=== PATIENT | female | born 1965 ===

== ENCOUNTER 2017-08-19 14:05 | Inpatient (IN) | payer BC ==
[2017-08-19 15:04] LABS: BASO # 0.04 K/mm3 (0.0-2.0); BASO % 0.3 % (0.0-3.0); EOS # 0.2 (0.0-0.7); EOS % 1.9 % (1.5-5.0); GRAN # 6.99 (1.4-6.5); GRAN % 59.3 % (50.0-68.0); HEMOGLOBIN 15.2 g/dL (12.0-16.0); LYMPH # 3.9 (1.2-3.4); LYMPH % 32.7 % (22.0-35.0); MEAN CELL VOLUME 84.9 fl (80.0-105.0); MEAN CORPUSCULAR HEMOGLOBIN 30.2 pg (25.0-35.0); MEAN CORPUSCULAR HGB CONC 35.6 g/dl (31.0-37.0); MEAN PLATELET VOLUME 9.1 fl (7.0-11.0); MONO # 0.7 (0.1-0.6); MONO % 5.8 % (1.0-6.0); RBC 5.03 10^6/uL (3.5-6.1); WHITE BLOOD COUNT 11.8 10^3/ul (4.5-11.0)
--- NOTE | 2017-08-19 15:04 | ED PDOC ---
Arrival/HPI - General Chief Complaint: Psychiatric Evaluation Time Seen by Provider: 08/19/17 14:57 Historian: Patient - History of Present Illness Narrative History of Present Illness (Text): 08/19/17 15:00 pt p/w + weeks onset of severe depression, worsening over the last 1-2 weeks; pt states lately some voices are stating/tell her to harm herself; pt states the voices and imagery are getting stronger; pt state she is seeing numerous ants and even to the point where she is trying to hit the ants; pt also noted concern for shadowy images; pt states + severe suicidal thoughts, pt wanted to jump in front of a train today but didnt; pt states no homicidal ideations, ? tactile hallucinations; pt states no fever/chills/sweats, no cp/sob/palpitations , no abd pain, no n/v, no numbness/tingling, no urinary/bowel changes, no rashes ; pt denied other complaints; pt is here for further eval. pt also states she has not been compliant with her mediations pt stopped drinking alcohol for weeks Time/Duration: < month Symptom Onset: Gradual Symptom Course: Worsening Context: Home Past Medical History - Provider Review Nursing Documentation Reviewed: Yes - Travel History Have you recently traveled outside [place] w/in the past 3 mons?: No - Past History Past History: No Previous - Infectious Disease Hx of Infectious Diseases: None - Reproductive Menopause: Yes - Cardiac Hx Cardiac Disorders: No Hx VT: No - Pulmonary Hx Respiratory Disorders: No Hx Tuberculosis: No (Patient denied) - Neurological Hx Neurological Disorder: No HX Cerebrovascular Accident: No Hx Transient Ischemic Attacks (TIA): No Other/Comment: ADHD - HEENT Hx HEENT Disorder: No - Renal Hx Renal Disorder: No - Endocrine/Metabolic Hx Endocrine Disorders: No - Hematological/Oncological Hx Blood Disorders: No Hx Blood Transfusions: No Hx Blood Transfusion Reaction: No - Integumentary Hx Dermatological Disorder: No - Musculoskeletal/Rheumatological Hx Musculoskeletal Disorders: No Hx Back Pain: No Hx Falls: No Hx Fractures: No - Gastrointestinal Hx Gastrointestinal Disorders: No - Genitourinary/Gynecological Hx Genitourinary Disorders: No Hx Sexually Transmitted Diseases: No (Patient denied) - Psychiatric Hx Psychophysiologic Disorder: Yes Hx Anxiety: Yes Hx Bipolar Disorder: Yes Hx Depression: Yes Hx Emotional Abuse: No Hx Physical Abuse: No Hx Substance Use: Yes Other/Comment: ADHD - Surgical History Hx Section: Yes (X1) Other/Comment: "TUMMY TUCK" AND "BREAST LIFT" - Anesthesia Hx Anesthesia: Yes Hx Anesthesia Reactions: No Hx Malignant Hyperthermia: No - Suicidal Assessment Suicide Risk Precautions: Suicide Precautions Family/Social History - Physician Review Nursing Documentation Reviewed: Yes Family/Social History: No Known Family HX Smoking Status: Heavy Smoker > 10 Cigarettes Daily Hx Alcohol Use: Yes Frequency of alcohol use: Socially Hx Substance Use: Yes Substance used: marijuanna and cocaine Hx Substance Use Treatment: No Allergies/Home Meds Allergies/Adverse Reactions: Allergies Penicillins Adverse Reaction (Verified 08/19/17 14:47) RASH Home Medications: Home Meds Medication Instructions Recorded Confirmed B-Complex with Vitamin C [Super B 1 tab PO DAILY 11/22/16 08/19/17 Complex-Vitamin C] Disulfiram 500 mg PO DAILY 11/22/16 08/19/17 QUEtiapine [Seroquel XR] 50 mg PO DAILY 11/22/16 08/19/17 ALPRAZolam [Xanax] 1 mg PO BID 08/19/17 08/19/17 Dextromethorphan HBr/Quinidine 1 cap PO BID 08/19/17 08/19/17 [Nuedexta 20-10 mg Capsule] Lamotrigine [Lamictal] 200 mg PO DAILY 08/19/17 08/19/17 Lisdexamfetamine Dimesylate 30 mg PO DAILY 08/19/17 08/19/17 [Vyvanse] Vortioxetine Hydrobromide 20 mg PO DAILY 08/19/17 08/19/17 [Trintellix] buPROPion XL [Wellbutrin XL] 150 mg PO DAILY 08/19/17 08/19/17 Review of Systems - Review of Systems Constitutional: Fatigue Eyes: Normal ENT: Normal Respiratory: Normal Cardiovascular: Normal Gastrointestinal: Normal Genitourinary Female: Normal Musculoskeletal: Normal Skin: Normal Neurological: Normal Endocrine: Normal Hemo/Lymphatic: Normal Psychiatric: Anxiety, Depression, Suicidal Ideation Physical Exam Vital Signs Reviewed: Yes Vital Signs Temp Pulse Resp BP Pulse Ox 08/19/17 18:21 82 18 137/86 98 08/19/17 16:21 74 18 129/84 98 08/19/17 14:08 98.2 F 100 H 19 135/89 98 Temperature: Afebrile Blood Pressure: Normal Pulse: Regular Respiratory Rate: Normal Appearance: Positive for: Well-Appearing, Other (uncomfortable, crying at bedside, alert/awake, GCS = 15, oriented x 3, cooperative, follows command with ease) Pain Distress: Mild Mental Status: Positive for: Alert and Oriented X 3, other (flat affect) - Systems Exam Head: Present: Atraumatic, Normocephalic Pupils: Present: PERRL, Other (no nystagmus, no photophobia, sclera anicteric, visual field intact b/l) Extroacular Muscles: Present: EOMI Conjunctiva: Present: Normal Ears: Present: Normal Mouth: Present: Moist Mucous Membranes, Normal Teeth Pharnyx: Present: Normal Nose (External): Present: Atraumatic Nose (Internal): Present: Normal Inspection Neck: Present: Normal Range of Motion, Trachea Midline, Other (intact ROM, no midline tenderness, no meningeal signs). No: MIDLINE TENDERNESS Respiratory/Chest: Present: Clear to Auscultation, Good Air Exchange, Other ( CTA b/l, no w/r/r, no accessory muscle use noted, no tachypenia) Cardiovascular: Present: Regular Rate and Rhythm, Normal S1, S2. No: Murmurs Abdomen: Present: Normal Bowel Sounds, Other (well nourished female, no focal tenderness, no mendez's sign, no mcburney's point tenderness) Back: Present: Normal Inspection. No: Midline Tenderness Upper Extremity: Present: Normal Inspection, Normal ROM, NORMAL PULSES, Neurovascularly Intact, Capillary Refill < 2s Lower Extremity: Present: Normal Inspection, NORMAL PULSES, Normal ROM, Neurovascularly Intact, Capillary Refill < 2 s, Other (+ ambulatory) Neurological: Present: GCS=15, CN II-XII Intact, Speech Normal, Other (NIH stroke scale ~ 0; no facial asymmetries, no slurr speech) Skin: Present: Warm, Normal Color, Other (cap refill < 1sec, no ulcerations, no petechiae) Psychiatric: Present: Alert, Oriented x 3, Depressed Mood, Suicidal Ideation, Other (flat affect; + crying at bedside) Medical Decision Making ED Course and Treatment: 08/19/17 15:08 Impression: suicidal ideation/attempt; severe depression/hallucination i have consider all the differential diagnosis regarding pt's chief medical complaints/clinical findings, including but are not limited to: suicidal ideation/attempt; severe depression A/P: severe depression, suicidal thoughts/attempt - labs - iv - xray - ekg - observe - supportive care 08/19/17 15:09 PT is MEDICALLY CLEARED FOR PSYCH EVAL 08/19/17 18:00 PES evaluated patient at bedside, will present to psych; does recommend for admission, awaiting for patient to sign in voluntarily 19:50 PES re-evaluated patient, pt is now agreeable for psych admission; will come in voluntarily pt is made aware of her medical results agrees with admission Re-evaluation Time: 19:50 Reassessment Condition: Unchanged - Lab Interpretations Lab Results: 08/19/17 14:15 08/19/17 14:15 Lab Results 08/19/17 15:25: Urine Color Yellow, Urine Appearance Turbid, Urine pH 6.0, Ur Specific [place] >= 1.030, Urine Protein 30 H, Urine Glucose (UA) Negative, Urine Ketones Trace H, Urine Blood Negative, Urine Nitrate Negative, Urine Bilirubin Negative, Urine Urobilinogen 0.2, Ur Leukocyte Esterase Negative, Urine RBC Negative, Urine WBC 1 - 3, Ur Epithelial Cells Many, Urine Bacteria Many, Urine HCG, Qual Negative 08/19/17 15:25: Urine Opiates Screen Negative, Urine Methadone Screen Negative, Ur Barbiturates Screen Negative, Ur Phencyclidine Scrn Negative, Ur Amphetamines Screen Negative, U Benzodiazepines Scrn Positive, U Oth Cocaine Metabols Negative, U Cannabinoids Screen Positive H 08/19/17 14:15: Alcohol, Quantitative < 10 08/19/17 14:15: Salicylates < 1 L, Acetaminophen < 10.0 L 08/19/17 14:15: Sodium 141, Potassium 3.8, Chloride 103, Carbon Dioxide 25, Anion Gap 16, BUN 8, Creatinine 0.7, Est GFR ( Amer) > 60, Est GFR (Non- Af Amer) > 60, Random Glucose 139 H, Calcium 10.2, Total Bilirubin 0.5, AST 34, ALT 37, Alkaline Phosphatase 148 H, Total Protein 7.9, Albumin 4.5, Globulin 3.4 , Albumin/Globulin Ratio 1.3 08/19/17 14:15: WBC 11.8 H, RBC 5.03, Hgb 15.2, Hct 42.7, MCV 84.9, MCH 30.2, MCHC 35.6, RDW 13.0, Plt Count 421, MPV 9.1, Gran % 59.3, Lymph % (Auto) 32.7, [place] % (Auto) 5.8, Eos % (Auto) 1.9, Baso % (Auto) 0.3, Gran # 6.99 H, Lymph # ( Auto) 3.9 H, [place] # (Auto) 0.7 H, Eos # (Auto) 0.2, Baso # (Auto) 0.04 I have reviewed the lab results: Yes Interpretation: Abnormal lab values (+ weed in [place]) - RAD Interpretation Narrative RAD Interpretations (Text): Report Date : 08/19/2017 16:47:08 PROCEDURE: Chest xray Dictator : Shane Shelley MD FINDINGS: LUNGS:No active pulmonary disease. PLEURA:No significant pleural effusion identified, no pneumothorax apparent. CARDIOVASCULAR:Normal. OSSEOUS STRUCTURES:No significant abnormalities. VISUALIZED UPPER ABDOMEN:Normal. OTHER FINDINGS:None. IMPRESSION: No active disease. Radiology Orders: 08/19/17 14:58 CHEST PORTABLE [RAD] Stat Clip On Sunglasses Inspector: Radiologist - EKG Interpretation EKG Interpretation (Text): 08/19/17 15:10 NSR at 90 bpm, normal axis, no ectopy, voltage criteria LVH, non-specific st-t changes, ABNL EKG; no old ekg to compare with Interpreted by ED Physician: Yes Type: 12 lead EKG Comparison: No previous EKG avail. - Medication Orders Current Medication Orders: Discontinued Medications Ziprasidone (Geodon Inj) 10 mg IM STAT STA PRN Reason: Protocol Stop: 08/19/17 17:53 Last Admin: 08/19/17 18:22 Dose: 10 mg IM Administration Charges Document 08/19/17 18:22 SF (Rec: 08/19/17 18:22 SF [id number]) Injection Site MAR Injection Site Left Deltoid Charges for Administration # of IM Administrations 1 Disposition/Present on Arrival - Present on Arrival Any Indicators Present on Arrival: No History of DVT/PE: No History of Uncontrolled Diabetes: No Urinary Catheter: No History of Decub. Ulcer: No History Surgical Site Infection Following: None - Disposition Have Diagnosis and Disposition been Completed?: Yes Diagnosis: Severe major depression, Depression with suicidal ideation, Hallucination Disposition: HOSPITALIZED Disposition Time: 19:52 Patient Plan: Admission (Behavioral health) Patient Problems: Current Active Problems Problem Status Onset Severe major depression Acute Condition: STABLE Referrals: Shane Carrion [Primary Care Provider] - Follow up with primary Forms: theAudience ([place])
[2017-08-19 15:15] LABS: ALB/GLOB RATIO 1.3 (1.1-1.8); ALBUMIN 4.5 g/dL (3.0-4.8); ALT/SGPT 37 U/L (7-56); AST/SGOT 34 U/L (14-36); BLOOD UREA NITROGEN 8 mg/dL (7-21); CALCIUM 10.2 mg/dL (8.4-10.5); GFR AFRICAN-AMERICAN > 60; GFR NON-AFRICAN AMERICAN > 60; SALICYLATE < 1 mg/dL (2.0-20.0)
[2017-08-19 15:16] LABS: ACETAMINOPHEN < 10.0 ug/ml (10.0-20.0)
[2017-08-19 15:52] LABS: URINE BILIRUBIN NEGATIVE (NEGATIVE); URINE BLOOD NEGATIVE (NEGATIVE); URINE GLUCOSE (UA) NEGATIVE (NEGATIVE); URINE LEUKOCYTE ESTERASE NEGATIVE Leu/uL (NEGATIVE); URINE NITRATE NEGATIVE (NEGATIVE); URINE PROTEIN 30 mg/dL (<30 mg/dL); URINE UROBILINOGEN 0.2 E.U./dL (<1 E.U./dL)
[2017-08-19 15:53] LABS: URINE APPEARANCE TURBID (CLEAR); URINE COLOR YELLOW (YELLOW)
[2017-08-19 15:55] LABS: PHENCYCLIDINE, UR NEGATIVE (NEGATIVE)
[2017-08-19 16:05] LABS: BARBITURATES, UR NEGATIVE (NEGATIVE); BENZODIAZEPINES, UR POSITIVE (NEGATIVE); OPIATES, UR NEGATIVE (NEGATIVE)
[2017-08-19 16:07] LABS: URINE BACTERIA MANY (NEG); URINE EPITHELIAL CELLS MANY /hpf (0-5); URINE RBC NEGATIVE /hpf (0-2)
[2017-08-19 16:09] LABS: HCG,QUALITATIVE URINE NEGATIVE (NEGATIVE)
--- NOTE | 2017-08-19 16:48 | RAD ---
HISTORY: medical screening for psych COMPARISON: No prior. FINDINGS: LUNGS: No active pulmonary disease. PLEURA: No significant pleural effusion identified, no pneumothorax apparent. CARDIOVASCULAR: Normal. OSSEOUS STRUCTURES: No significant abnormalities. VISUALIZED UPPER ABDOMEN: Normal. OTHER FINDINGS: None. IMPRESSION: No active disease.
[2017-08-19] MEDS: QUEtiapine 50 mg XR Tab PO SCH (21:35)
[2017-08-19] MEDS ORDERED: Alum-Mag Hydrox-Simethicone Susp (30 mL) PO PRN (22:21)
[2017-08-20 00:54] VITALS: O2SAT 100
--- NOTE | 2017-08-20 02:30 | CARD ---
APPROVED REPORT EKG Measurement Heart [id number] <Conclusion> Normal sinus rhythm Possible Left atrial enlargement Borderline ECG
[2017-08-20] MEDS ORDERED: buPROPion 150 mg/24 Hours XL Tab PO SCH (08:00)
[2017-08-20 08:03] LABS: GLUCOSE,FASTING 158 mg/dL (65-110); HDL CHOLESTEROL 43 mg/dL (29-60)
[2017-08-20 08:14] LABS: LDL CHOLESTEROL 152 mg/dL (0-129)
[2017-08-20] MEDS: QUEtiapine 50 mg XR Tab PO SCH (09:28)
[2017-08-20] MEDS: Insulin Reg-MEDIUM-Coverage SC SCH ×3 (14:10→22:11)
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
[2017-08-20] MEDS ORDERED: Albuterol HFA 90 mcg/actuation (8 g) IH PRN (15:47)
--- NOTE | 2017-08-20 16:52 | CON ---
DATE: HISTORY OF PRESENT ILLNESS: I was called to Psychiatric Unit for medical evaluation. She is a 52-year-old female who comes in with severe depression, worsening over the last 1 to 2 weeks. Also, some voices telling her to harm herself. Also, visual hallucinations of ants, shadow images. Severe suicidal thoughts, like wanting to jump in front of a train. No homicidal thoughts. No fever. She states she is taking the medications. She stopped drinking alcohol for weeks. She used to be a big drinker. PAST MEDICAL HISTORY: ADHD, depression, bipolar, anxiety, substance abuse. She had a tummy tuck, section, breast lift surgeries. FAMILY HISTORY: Unknown. SOCIAL HISTORY: She still smokes, still drinks, still smokes marijuana and cocaine. ALLERGIES: TO PENICILLIN. MEDICINES: She takes vitamin Zofran, Seroquel, Xanax, dextromethorphan, Lamictal, Vyvanse, Trintellix, Wellbutrin. REVIEW OF SYSTEMS: Very tired and fatigued. No vision or hearing changes. No sore throat. No chest pain or palpitations. No shortness of breath or cough. No abdominal pain, nausea, vomiting, constipation, diarrhea. No problems urinating. No back pain or leg pains. No weakness or tingling. No numbness. She is very depressed, very anxious, suicidal thoughts. PHYSICAL EXAMINATION GENERAL: She is alert, well-appearing, very sad, slow to respond, but alert and oriented x3. Flat affect. VITAL SIGNS: She has 98.2 temperature, 100 pulse, 19 respiratory rate, 135/89 blood pressure, 98% O2 sat. We will watch her blood pressure. HEENT: Head atraumatic, normocephalic. Extraocular muscles are intact. Pupils equal and reactive to light. Throat is moist. NECK: Supple. HEART: Regular rate, normal S1, S2. LUNGS: Decreased breath sounds, poor inspiration, clear to auscultation. Very tired, not willing to talk much. ABDOMEN: Soft, nontender, positive bowel sounds. EXTREMITIES: Have no edema. NEUROLOGIC: GCS is 15. Cranial nerves II to XII grossly intact. SKIN: Warm and dry. No apparent ulcers that I could appreciate or skin irritation. She has got suicidal ideation, depression, visual and auditory hallucinations, marijuana and cocaine abuse, urinary tract infection, high cholesterol, leukocytosis. She had multiple labs. She has 11.8 white count, high; 15.2 hemoglobin; 42.7 hematocrit with 421 platelets. Sodium 141, potassium 3.8, BUN 8, creatinine 0.7, GFR is greater than 60, sugar is 139. Blood sugars are high, I will put her on coverage. Calcium is 10.2, total bilirubin is 0.5, AST is 34, ALT is 37, alkaline phosphatase 148, total protein 7.9, albumin is 4.5, globulin is 3.4, triglycerides 129, and cholesterol is 209, little bit high. Urine is positive for many bacteria, I will put her on antibiotics; negative for ; positive for marijuana. The chest x-ray was okay. The EKG was okay. Multiple problems from suicidal ideations, depression, visual and auditory hallucinations, marijuana use, possible elevated blood sugars or diabetes, urinary tract infection, high cholesterol, leukocytosis, attention deficit hyperactive disorder. We will check her labs tomorrow. Put her on antibiotics. will follow. Thank you very much. Junior Rider DO [facility]
[2017-08-20] MEDS: Fluticasone-Salmeterol 500-50mcg Diskus INH SCH (17:58)
[2017-08-20] MEDS ORDERED: guaiFENesin 200 mg/10 ml Syrup UD PO PRN (20:51)
[2017-08-20] MEDS: Benzocaine/Menthol (Cepacol) Lozenge MT PRN (21:39)
[2017-08-20] MEDS: Magnesium Hydroxide Susp 30 ml UD PO PRN (22:18)
--- NOTE | 2017-08-21 00:52 | PCM.BM ---
Treatment Plan Problems - Problems identified on initial assessmt Ineffective Coping Date Initiated: 08/19/17 Time Initiated: 22:00 Assessment reference: NA Status: Active Priority: 6 Medication Nonadherence Date Initiated: 08/19/17 Time Initiated: 22:00 Assessment reference: NA Status: Active Priority: 7 Suicidal Ideation Date Initiated: 08/19/17 Time Initiated: 22:00 Assessment reference: NA Status: Active Priority: 1 Command/Auditory Hallucinations Date Initiated: 08/19/17 Time Initiated: 22:00 Assessment reference: NA Status: Active Priority: 2 Feelings of Worthlessness Date Initiated: 08/19/17 Time Initiated: 22:00 Assessment reference: NA Status: Active Priority: 3 Hopelessness/Helplessness Date Initiated: 08/19/17 Time Initiated: 22:00 Assessment reference: NA Status: Active Priority: 4 Anxiety Date Initiated: 08/19/17 Time Initiated: 22:00 Assessment reference: NA Status: Active Priority: 5 Treatment assets and liabiliti Patient Assests: cooperative, ADL independent, negotiates basic needs Patient Liabilities: relationship conflicts - Milieu Protocol Maintain good personal hygiene: daily Encourage regular showers, every shift Remind patient to perform daily oral care, every shift Assist patient to perform ADL's Maintain personal safety: every shift Educate patient to report safety concerns to staff, every shift Monitor environment for contraband/sharps Medication safety: Monitor for expected outcome, potential side effects: every shift, Assess barriers to learning: every shift, Assess readiness for medication education: every shift Milieu Narrative: milieu/structure/supportive therapy Disulfiram 500 mg PO DAILYpt might consider that, but refused for now pt was educated about naltrexone QUEtiapine [Seroquel XR] 50 mg PO DAILY will be d/c ALPRAZolam [Xanax] 1 mg PO will be increased to tid for anxiety Dextromethorphan HBr/Quinidine [Nuedexta 20-10 mg Capsule] d/c Lamotrigine [Lamictal] 200 mg PO DAILY will be not resumed, pt was off it for 7days Lisdexamfetamine Dimesylate [Vyvanse] 30 mg PO DAILY d/c, pt was hallucinating Vortioxetine Hydrobromide [Trintellix] 20 mg PO DAILY d/c buPROPion XL [Wellbutrin XL] 150 mg PO DAILY d/c prozac started 20mg po daily for depression and anxiety abilify 5mg po daily for mood stabilization sonata 5mg po hs for insomnia will call medical consult SW evaluation Family involvement Follow up on labs Will monitor closely Pt was educated about risk/benefits and alternatives of medications, coping strategies (safety plan, suicide prevention), relapse prevention, importance of follow up with psychiatrist and therapist, stay away from drugs/alcohol/smoking Family Contact Family involvement: Family/SO is involved Family contact: Patient agrees to contact Discharge/Continuing Care - Education Needs Education Needs: Patient Medication, Patient Diagnosis/Disease Process, Patient Coping Skills, Patient Anger Management skills, Patient Placement options, Patient Community resources, Patient Activities of Daily Living, Patient Pain, Patient Nutrition, Patient Uses of Medical Equipment, Patient Health Practices/ Safety, Patient Personal Hygiene/Grooming, Patient Aftercare Safety Plan, Patient Other - Discharge Discharge Criteria: Tolerates medication w/o severe side effects, Free of Suicidal thoughts - Treatment Team Participation Patient/Family/SO Statement: milieu/structure/supportive therapy Disulfiram 500 mg PO DAILYpt might consider that, but refused for now pt was educated about naltrexone QUEtiapine [Seroquel XR] 50 mg PO DAILY will be d/c ALPRAZolam [Xanax] 1 mg PO will be increased to tid for anxiety Dextromethorphan HBr/Quinidine [Nuedexta 20-10 mg Capsule] d/c Lamotrigine [Lamictal] 200 mg PO DAILY will be not resumed, pt was off it for 7days Lisdexamfetamine Dimesylate [Vyvanse] 30 mg PO DAILY d/c, pt was hallucinating Vortioxetine Hydrobromide [Trintellix] 20 mg PO DAILY d/c buPROPion XL [Wellbutrin XL] 150 mg PO DAILY d/c prozac started 20mg po daily for depression and anxiety abilify 5mg po daily for mood stabilization sonata 5mg po hs for insomnia will call medical consult SW evaluation Family involvement Follow up on labs Will monitor closely Pt was educated about risk/benefits and alternatives of medications, coping strategies (safety plan, suicide prevention), relapse prevention, importance of follow up with psychiatrist and therapist, stay away from drugs/alcohol/smoking
--- NOTE | 2017-08-21 01:53 | CON ---
DATE: 08/20/2017 PULMONARY CONSULTATION REFERRING PHYSICIAN: Patsy Sexton MD. REASON FOR CONSULT: Shortness of breath, bronchitis. HISTORY OF PRESENT ILLNESS: This is a 52-year-old female with past medical history significant for bronchitis, active smoker, severe depression, came into emergency room with a suicidal ideation. She expressed feeling jumping in front of the train. No homicidal ideation. Also having cough, shortness of breath. No nausea. No vomiting. No diarrhea, leg pain or leg swelling. PAST MEDICAL HISTORY: ADHD, major depression, chronic bronchitis, also claims has a bipolar disorder, history of substance abuse. FAMILY HISTORY: No significant cardiopulmonary disease reported. SOCIAL HISTORY: She is active smoker. Does use alcohol. Also has a history of substance abuse. In the past, used marijuana and cocaine. ALLERGY: TO PENICILLIN, DEVELOP RASH. MEDICATIONS: At present, she is on Abilify 5 mg daily, Cepacol lozenges q. 2 hours p.r.n. Geodon 20 mg q. 8 hours p.r.n. and Geodon 20 mg IM q. 8 hours p.r.n. insulin coverage, Maalox p.r.n., Macrobid 100 mg twice a day, milk of magnesia p.r.n., Nicoderm patch daily, Prozac 10 mg daily, Sonata 5 mg at bedtime p.r.n., Tylenol p.r.n., Xanax 1 mg q. 8 hours p.r.n. REVIEW OF SYSTEMS: Not much headache. No rhinitis. Has a cough, sputum production, short of breath. No chest pain. No nausea. No vomiting, diarrhea, leg pain, leg swelling. PHYSICAL EXAMINATION: GENERAL: Lying in the bed, no acute distress. VITAL SIGNS: Temp is 98, heart rate is 75, respiratory rate is 20, blood pressure 113/70, pulse ox 100% on room air. HEENT: Moist mucous membranes. Small oral cavity. Crowded airway. NECK: Supple. No JVD. LUNGS: Have a prolonged expiratory phase with some rhonchi. HEART: S1 and S2. ABDOMEN: Soft, nontender. No organomegaly. EXTREMITIES: There is no edema. NEUROLOGIC: Awake, alert. Follows simple command. LABORATORY DATA: Shows hemoglobin 15.2, hematocrit 42.7, WBC 11.8, platelet is 421. Sodium 141, potassium 3.8, chloride 103, bicarbonate 25, BUN 8, creatinine 0.7, glucose 236, calcium is 10.2, AST 34, ALT 37, alk phos is 148, albumin is 4.5, cholesterol is 209, TSH 1.28. Drug screen positive for cannabinoid. Had a chest x-ray done in the emergency room, shows no infiltrate or effusion. Had EKG done in the ER, shows normal sinus rhythm. IMPRESSION AND PLAN: Major depression with probably bipolar disorder, chronic obstructive lung disease with acute bronchitis, being followed by psychiatrist. Pulmonary point of view, may give her Nicoderm patch. We will start her on Breo 1 puff daily, Ventolin HFA q. 4 hours p.r.n., gastric prophylaxis, fall precaution. Urged the patient to stop smoking. Pulmonary function test upon discharge as outpatient. Thank you and we will follow with you. Jennifer Powers MD
[2017-08-21] MEDS: Fluticasone-Salmeterol 500-50mcg Diskus INH SCH ×2 (06:33→21:42)
[2017-08-21 08:09] LABS: HEMOGLOBIN 14.3 g/dL (12.0-16.0); MEAN CELL VOLUME 86.9 fl (80.0-105.0); MEAN CORPUSCULAR HEMOGLOBIN 29.7 pg (25.0-35.0); MEAN CORPUSCULAR HGB CONC 34.2 g/dl (31.0-37.0); MEAN PLATELET VOLUME 9.1 fl (7.0-11.0); RBC 4.81 10^6/uL (3.5-6.1); RED CELL DISTRIBUTION WIDTH 12.9 % (11.5-14.5); WHITE BLOOD COUNT 9.9 10^3/ul (4.5-11.0)
[2017-08-21] MEDS: Insulin Reg-MEDIUM-Coverage SC SCH ×3 (08:31→17:07)
[2017-08-21 08:39] LABS: ALB/GLOB RATIO 1.3 (1.1-1.8); ALT/SGPT 45 U/L (7-56); AST/SGOT 31 U/L (14-36); BLOOD UREA NITROGEN 10 mg/dL (7-21); CALCIUM 9.7 mg/dL (8.4-10.5); GFR AFRICAN-AMERICAN > 60; GFR NON-AFRICAN AMERICAN > 60
--- NOTE | 2017-08-21 15:45 | PN ---
DATE: SUBJECTIVE: I saw her resting comfortably in bed. She is in better spirits. She is eating a little bit better. She is taking her medications. She is on Abilify, Advair, Cepacol, Geodon, insulin, Maalox, Macrobid, milk of magnesia, NicoDerm, Pepcid, Sonata, Tylenol, Ventolin and Xanax. She has depression, suicidal ideation, diabetes, marijuana and cocaine abuse history, visual and auditory hallucinations, positive UTI, high cholesterol, leukocytosis and ADHD. OBJECTIVE VITAL SIGNS: Temperature 98.2, pulse 75, blood pressure 135/85, respiratory rate 20. HEENT: Head is atraumatic, normocephalic. HEART: Regular rate. LUNGS: Clear to auscultation. ABDOMEN: Soft and obese. EXTREMITIES: No edema. DATA: She has a 9.9 white count and better, 14.3 hemoglobin, 41.8 hematocrit with 347,000 platelets. Sodium 141, potassium 4.3, BUN 10, creatinine 0.7. GFR is greater than 60. Sugar is 215, calcium 9.7, total bilirubin is 0.4, AST is 31, ALT is 45, alkaline phosphatase 118, total protein 7.1. IMPRESSION AND PLAN: She does have urinary tract infection, positive for marijuana. RPR is nonreactive. She is being seen by Psychiatry and Pulmonary for shortness of breath. She has chronic obstructive pulmonary disease. She is on NicoDerm patch. Encourage the patient to stop smoking. We will continue with aggressive treatment and care. Junior Rider DO [facility]
--- NOTE | 2017-08-21 18:35 | PCM.BM ---
- Diagnosis (1) Bipolar II disorder Status: Acute Interventions: 08/20/17 15:03 Psychoeducation Psychopharmacology/adjustment of medications as needed/ monitoring possible side effects Monitor blood level of mood stabilizers Evaluate pt on daily basis Compliance with medications and follow up appointments Suicide and homicide risk assessment and prevention, coping strategies, safety plan Relapse prevention Reduction of symptoms Improve functional status Family involvement As outpatient: cognitive behavioral therapy (2) Polysubstance abuse Status: Acute Interventions: 08/20/17 15:03 Monitoring withdrawal symptoms Medical detoxification Pharmacotherapy for alcohol/benzos/opioid dependence Maintaining sobriety Relapse prevention Possible rehabilitation Motivational interviewing 12-step programs: AA meetings (3) PTSD (post-traumatic stress disorder) Status: Acute Interventions: 08/20/17 15:04 Psychoeducation Psychopharmacology/adjustment of medications as needed/ monitoring possible side effects Evaluate pt on daily basis Discussion of importance of being compliant with medications and follow up appointments Suicide and homicide risk assessment and prevention, coping strategies, safety plan Reduction of symptoms Relaxation techniques and breathing exercises Improve functional status Family involvement Cognitive behavioral therapy as outpatient - Milieu Protocol Milieu Narrative: milieu/structure/supportive therapy Disulfiram 500 mg PO DAILYpt might consider that, but refused for now pt was educated about naltrexone QUEtiapine [Seroquel XR] 50 mg PO DAILY will be d/c ALPRAZolam [Xanax] 1 mg PO will be increased to tid for anxiety Dextromethorphan HBr/Quinidine [Nuedexta 20-10 mg Capsule] d/c Lamotrigine [Lamictal] 200 mg PO DAILY will be not resumed, pt was off it for 7days Lisdexamfetamine Dimesylate [Vyvanse] 30 mg PO DAILY d/c, pt was hallucinating Vortioxetine Hydrobromide [Trintellix] 20 mg PO DAILY d/c buPROPion XL [Wellbutrin XL] 150 mg PO DAILY d/c prozac started 20mg po daily for depression and anxiety abilify 5mg po daily for mood stabilization sonata 5mg po hs for insomnia will call medical consult SW evaluation Family involvement Follow up on labs Will monitor closely Pt was educated about risk/benefits and alternatives of medications, coping strategies (safety plan, suicide prevention), relapse prevention, importance of follow up with psychiatrist and therapist, stay away from drugs/alcohol/smoking Discharge/Continuing Care - Treatment Team Participation Patient/Family/SO Statement: milieu/structure/supportive therapy Disulfiram 500 mg PO DAILYpt might consider that, but refused for now pt was educated about naltrexone QUEtiapine [Seroquel XR] 50 mg PO DAILY will be d/c ALPRAZolam [Xanax] 1 mg PO will be increased to tid for anxiety Dextromethorphan HBr/Quinidine [Nuedexta 20-10 mg Capsule] d/c Lamotrigine [Lamictal] 200 mg PO DAILY will be not resumed, pt was off it for 7days Lisdexamfetamine Dimesylate [Vyvanse] 30 mg PO DAILY d/c, pt was hallucinating Vortioxetine Hydrobromide [Trintellix] 20 mg PO DAILY d/c buPROPion XL [Wellbutrin XL] 150 mg PO DAILY d/c prozac started 20mg po daily for depression and anxiety abilify 5mg po daily for mood stabilization sonata 5mg po hs for insomnia will call medical consult SW evaluation Family involvement Follow up on labs Will monitor closely Pt was educated about risk/benefits and alternatives of medications, coping strategies (safety plan, suicide prevention), relapse prevention, importance of follow up with psychiatrist and therapist, stay away from drugs/alcohol/smoking
--- NOTE | 2017-08-21 18:41 | PCM.PYCHPN ---
Psychiatric Progress Note - Psychiatric Progress Note Patient seen today, length of contact: 30min Patient Chief Complaint: "I am hopeless and anxious, I want to go home" Problems Identified/Issues Discussed: Suicide/ homicide prevention, past psychiatric h/o, current psychiatric symptoms , medical problems, risk/benefits and alternatives of medications, medications compliance, coping strategies, substance abuse h/o, relapse prevention, importance of follow up with psychiatrist and therapist, discharge plan. Medical Problems: See HPI Diagnostic Results: 08/21/17 07:30 08/21/17 07:30 Lab Results 08/21/17 16:35: POC Glucose (mg/dL) 167 H 08/21/17 11:01: POC Glucose (mg/dL) 264 H 08/21/17 07:30: Sodium 141, Potassium 4.3, Chloride 102, Carbon Dioxide 26, Anion Gap 16, BUN 10, Creatinine 0.7, Est GFR ( Amer) > 60, Est GFR (Non- Af Amer) > 60, Random Glucose 215 H, Calcium 9.7, Total Bilirubin 0.4, AST 31, ALT 45, Alkaline Phosphatase 118, Total Protein 7.1, Albumin 4.0, Globulin 3.2, Albumin/Globulin Ratio 1.3 08/21/17 07:30: WBC 9.9, RBC 4.81, Hgb 14.3, Hct 41.8, MCV 86.9, MCH 29.7, MCHC 34.2, RDW 12.9, Plt Count 347, MPV 9.1 08/21/17 07:15: POC Glucose (mg/dL) 161 H 08/20/17 21:14: POC Glucose (mg/dL) 198 H 08/20/17 17:12: POC Glucose (mg/dL) 125 H 08/20/17 11:14: POC Glucose (mg/dL) 236 H 08/20/17 07:20: RPR Nonreactive 08/20/17 07:20: TSH 3rd Generation 1.28 08/20/17 07:20: Fasting Glucose 158 H, Triglycerides 129, Cholesterol 209 H, LDL Cholesterol Direct 152 H, HDL Cholesterol 43 08/19/17 15:25: Urine Color Yellow, Urine Appearance Turbid, Urine pH 6.0, Ur Specific [place] >= 1.030, Urine Protein 30 H, Urine Glucose (UA) Negative, Urine Ketones Trace H, Urine Blood Negative, Urine Nitrate Negative, Urine Bilirubin Negative, Urine Urobilinogen 0.2, Ur Leukocyte Esterase Negative, Urine RBC Negative, Urine WBC 1 - 3, Ur Epithelial Cells Many, Urine Bacteria Many, Urine HCG, Qual Negative 08/19/17 15:25: Urine Opiates Screen Negative, Urine Methadone Screen Negative, Ur Barbiturates Screen Negative, Ur Phencyclidine Scrn Negative, Ur Amphetamines Screen Negative, U Benzodiazepines Scrn Positive, U Oth Cocaine Metabols Negative, U Cannabinoids Screen Positive H 08/19/17 14:15: Alcohol, Quantitative < 10 08/19/17 14:15: Salicylates < 1 L, Acetaminophen < 10.0 L 08/19/17 14:15: Sodium 141, Potassium 3.8, Chloride 103, Carbon Dioxide 25, Anion Gap 16, BUN 8, Creatinine 0.7, Est GFR ( Amer) > 60, Est GFR (Non- Af Amer) > 60, Random Glucose 139 H, Calcium 10.2, Total Bilirubin 0.5, AST 34, ALT 37, Alkaline Phosphatase 148 H, Total Protein 7.9, Albumin 4.5, Globulin 3.4 , Albumin/Globulin Ratio 1.3 08/19/17 14:15: WBC 11.8 H, RBC 5.03, Hgb 15.2, Hct 42.7, MCV 84.9, MCH 30.2, MCHC 35.6, RDW 13.0, Plt Count 421, MPV 9.1, Gran % 59.3, Lymph % (Auto) 32.7, [place] % (Auto) 5.8, Eos % (Auto) 1.9, Baso % (Auto) 0.3, Gran # 6.99 H, Lymph # ( Auto) 3.9 H, [place] # (Auto) 0.7 H, Eos # (Auto) 0.2, Baso # (Auto) 0.04 Vital Signs Temp Pulse Resp BP Pulse Ox 08/21/17 16:00 88 139/95 H 08/21/17 06:44 98.2 F 75 20 137/85 08/20/17 15:44 80 127/64 08/20/17 07:13 98.1 F 75 113/70 08/19/17 21:00 98.4 F 70 20 133/84 08/19/17 20:45 89 18 131/85 100 08/19/17 18:21 82 18 137/86 98 08/19/17 16:21 74 18 129/84 98 08/19/17 14:08 98.2 F 100 H 19 135/89 98 DSM 5 Symptoms Update: Shortly pt is 52yo single, female, long h/o alcohol addiction, cocaine and cannabis abuse, one self reported psychiatric admission, currently under the service of private psychiatrist , self reported h/o 4x suicidal attempts, 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 pt submitted 48 hr notice, requesting discharge this newspaper writer had prolonged conversation with pt with SW pt presented to be tearful and anxious pt appears to be depressed pt said she was not able to sleep pt asked lamictal to be resumed pt c/o extreme anxiety, klonopin added mood "depressed and hopeless". pt rescinded 48hr notice. med teaching provided. DSM 5 Diagnosis: r/o bipolar II depressed with psychosis r/o substance induced psychosis (withdrawals) r/o delirium, pt has UTI polysubstance abuse most likely it is all the above, combined Medication Change: Yes Medical Record Reviewed: Yes Consults ordered or reviewed: medical consult appreciated Mental Status Examination - Cognitive Function Orientation: Person, Place, Situation, Time Memory: Intact Attention: Poor Concentration: Poor Association: Loose Fund of Knowledge: Poor - Mood Mood: Depressed, Anxious - Affect Affect: Flat - Formal Thought Process Formal Thought Process: No Impairment (denied) - Suicidal Ideation Suicidal Ideation: No - Homicidal Ideation Homicidal Ideation: No Goal/Treatment Plan - Goal/Treatment Plan Need for Continued Stay: Remain at risks for inpatient hospitalization, Severe depression anxiety, Discharge may exacerbated symptoms, Severe functional impairment Progress Toward Problem(s) and Goals/Treatment Plan: milieu/structure/supportive therapy Disulfiram 500 mg PO DAILYpt might consider that, but refused for now pt was educated about naltrexone ALPRAZolam [Xanax] 1 mg PO tid for anxiety PRN klonopin 2mg po bid scheduled Dextromethorphan HBr/Quinidine [Nuedexta 20-10 mg Capsule] d/c Lamotrigine will be resumed 100mg po bid for mood stabilization as per pt's request prozac started 20mg po daily for depression and anxiety abilify 5mg po bid for mood stabilization sonata 10mg po hs for insomnia will call medical consult SW evaluation Family involvement Follow up on labs Will monitor closely Pt was educated about risk/benefits and alternatives of medications, coping strategies (safety plan, suicide prevention), relapse prevention, importance of follow up with psychiatrist and therapist, stay away from drugs/alcohol/smoking Estimated Date of D/C: 08/25/17
[2017-08-21] MEDS: Benzocaine/Menthol (Cepacol) Lozenge MT PRN (21:41)
[2017-08-21] MEDS: Magnesium Hydroxide Susp 30 ml UD PO PRN (22:47)
[2017-08-22] MEDS: Insulin Reg-MEDIUM-Coverage SC SCH ×5 (00:10→23:30)
--- NOTE | 2017-08-22 02:40 | PN ---
DATE: 08/21/2017 REFERRING PHYSICIAN: Patsy Sexton MD SUBJECTIVE: Patient is sitting up, having dinner. Night was unremarkable. Slept well. Feels better. Decreased cough. Decreased shortness of breath. No nausea. No vomiting. No diarrhea. No leg pain or leg swelling. OBJECTIVE: GENERAL: In no acute distress. VITAL SIGNS: Temperature is 98, heart rate is 88, respiratory rate is 20, blood pressure 139/95. HEENT: Moist mucous membrane. Small oral cavity. NECK: Supple. No JVD. LUNGS: Has better airflow today. No wheezing. HEART: S1 and S2. ABDOMEN: Soft, nontender. No organomegaly. EXTREMITIES: There is no edema. NEUROLOGICAL: Awake, alert, follow simple command. MEDICATIONS: She is on Abilify 5 mg twice a day, Advair 500/50 one puff twice a day, Cepacol lozenges q. 2 hours p.r.n. Geodon 20 mg q. 8 hours p.o.., also Geodon 20 mg IM q. 8 hours p.r.n., Klonopin 2 mg twice a day, Lamictal 100 mg twice a day, Maalox p.r.n. basis, Macrobid 100 mg twice a day, Nicoderm patch daily, Pepcid 40 mg at bedtime, Prozac 20 mg daily, Sonata 10 mg at bedtime, Tylenol p.r.n., Ventolin HFA two puff q. 4 hours p.r.n., Xanax 1 mg three times a day p.r.n. LABORATORY DATA: Shows hemoglobin 14.3, hematocrit 41.8, WBC 9.9, platelet is 347. Sodium 141, potassium 4.3, chloride 108, bicarbonate 26, BUN 10, creatinine 0.7, glucose 215, calcium is 9.7, AST is 31, ALT is 45, alkaline phosphatase is 118, albumin is 4.0. IMPRESSION AND PLAN: Major depression probably bipolar, chronic obstructive lung disease with acute bronchitis, admitted with suicidal ideation. Pulmonary point of view, doing okay. Continue p.o. and inhaled bronchodilator. Gastric prophylaxis. Fall precaution. We will recommend full pulmonary function test upon discharge as an outpatient. Continue therapy. Thank you and we will follow with you. Jennifer Powers MD [facility] # [phone]
[2017-08-22] MEDS: Promethazine DM 6.25 mg-15 mg/5 ml Syrup PO PRN ×2 (09:22→21:21)
--- NOTE | 2017-08-22 14:31 | PN ---
DATE: SUBJECTIVE: I saw her sitting up in bed. She is now coughing with some yellow-green mucus, feeling sick she tells me; otherwise, mentally she is feeling a bit better. MEDICATIONS: She is on Abilify, Advair, Cepacol lozenges, Geodon, insulin, Klonopin, Lamictal, Maalox, Macrobid for UTI, milk of magnesia, Nicoderm, Pepcid, Phenergan DM, Prozac, Sonata, Tylenol, Ventolin, Xanax. I added promethazine, I added Zithromax. OBJECTIVE: VITAL SIGNS: She has a 97.9 temperature, 88 pulse, 144/87 blood pressure, 20 respiratory rate. HEAD: Atraumatic, normocephalic. HEART: Regular rate. LUNGS: Clear to auscultation with mild congestion, clears with cough. ABDOMEN: Soft. EXTREMITIES: No edema. LABORATORY DATA: White count 9.9, 14.3 hemoglobin and 347 platelets. Last blood sugar was 143. BUN 10, creatinine 0.7, calcium 9.7. AST is 31, ALT is 45. Urine was positive. PLAN: I am going to discontinue her Macrobid. She is on Zithromax. I asked her to drink more fluids. I do think mentally she is getting better. She is here for numerous reasons, suicidal ideation, depression, marijuana, cocaine history, visual and auditory hallucinations, diabetes, UTI, high cholesterol, leukocytosis, ADHD and now URI. Junior Rider DO
--- NOTE | 2017-08-22 15:24 | PCM.PYCHPN ---
Psychiatric Progress Note - Psychiatric Progress Note Patient seen today, length of contact: 30min Patient Chief Complaint: "I slept little bit better" Problems Identified/Issues Discussed: Suicide/ homicide prevention, past psychiatric h/o, current psychiatric symptoms , medical problems, risk/benefits and alternatives of medications, medications compliance, coping strategies, substance abuse h/o, relapse prevention, importance of follow up with psychiatrist and therapist, discharge plan. Medical Problems: See HPI Diagnostic Results: 08/21/17 07:30 08/21/17 07:30 Lab Results 08/21/17 16:35: POC Glucose (mg/dL) 167 H 08/21/17 11:01: POC Glucose (mg/dL) 264 H 08/21/17 07:30: Sodium 141, Potassium 4.3, Chloride 102, Carbon Dioxide 26, Anion Gap 16, BUN 10, Creatinine 0.7, Est GFR ( Amer) > 60, Est GFR (Non- Af Amer) > 60, Random Glucose 215 H, Calcium 9.7, Total Bilirubin 0.4, AST 31, ALT 45, Alkaline Phosphatase 118, Total Protein 7.1, Albumin 4.0, Globulin 3.2, Albumin/Globulin Ratio 1.3 08/21/17 07:30: WBC 9.9, RBC 4.81, Hgb 14.3, Hct 41.8, MCV 86.9, MCH 29.7, MCHC 34.2, RDW 12.9, Plt Count 347, MPV 9.1 08/21/17 07:15: POC Glucose (mg/dL) 161 H 08/20/17 21:14: POC Glucose (mg/dL) 198 H 08/20/17 17:12: POC Glucose (mg/dL) 125 H 08/20/17 11:14: POC Glucose (mg/dL) 236 H 08/20/17 07:20: RPR Nonreactive 08/20/17 07:20: TSH 3rd Generation 1.28 08/20/17 07:20: Fasting Glucose 158 H, Triglycerides 129, Cholesterol 209 H, LDL Cholesterol Direct 152 H, HDL Cholesterol 43 08/19/17 15:25: Urine Color Yellow, Urine Appearance Turbid, Urine pH 6.0, Ur Specific Lennon >= 1.030, Urine Protein 30 H, Urine Glucose (UA) Negative, Urine Ketones Trace H, Urine Blood Negative, Urine Nitrate Negative, Urine Bilirubin Negative, Urine Urobilinogen 0.2, Ur Leukocyte Esterase Negative, Urine RBC Negative, Urine WBC 1 - 3, Ur Epithelial Cells Many, Urine Bacteria Many, Urine HCG, Qual Negative 08/19/17 15:25: Urine Opiates Screen Negative, Urine Methadone Screen Negative, Ur Barbiturates Screen Negative, Ur Phencyclidine Scrn Negative, Ur Amphetamines Screen Negative, U Benzodiazepines Scrn Positive, U Oth Cocaine Metabols Negative, U Cannabinoids Screen Positive H 08/19/17 14:15: Alcohol, Quantitative < 10 08/19/17 14:15: Salicylates < 1 L, Acetaminophen < 10.0 L 08/19/17 14:15: Sodium 141, Potassium 3.8, Chloride 103, Carbon Dioxide 25, Anion Gap 16, BUN 8, Creatinine 0.7, Est GFR ( Amer) > 60, Est GFR (Non- Af Amer) > 60, Random Glucose 139 H, Calcium 10.2, Total Bilirubin 0.5, AST 34, ALT 37, Alkaline Phosphatase 148 H, Total Protein 7.9, Albumin 4.5, Globulin 3.4 , Albumin/Globulin Ratio 1.3 08/19/17 14:15: WBC 11.8 H, RBC 5.03, Hgb 15.2, Hct 42.7, MCV 84.9, MCH 30.2, MCHC 35.6, RDW 13.0, Plt Count 421, MPV 9.1, Gran % 59.3, Lymph % (Auto) 32.7, [place] % (Auto) 5.8, Eos % (Auto) 1.9, Baso % (Auto) 0.3, Gran # 6.99 H, Lymph # ( Auto) 3.9 H, [place] # (Auto) 0.7 H, Eos # (Auto) 0.2, Baso # (Auto) 0.04 Vital Signs Temp Pulse Resp BP Pulse Ox 08/21/17 16:00 88 139/95 H 08/21/17 06:44 98.2 F 75 20 137/85 08/20/17 15:44 80 127/64 08/20/17 07:13 98.1 F 75 113/70 08/19/17 21:00 98.4 F 70 20 133/84 08/19/17 20:45 89 18 131/85 100 08/19/17 18:21 82 18 137/86 98 08/19/17 16:21 74 18 129/84 98 08/19/17 14:08 98.2 F 100 H 19 135/89 98 DSM 5 Symptoms Update: Shortly pt is 52yo single, female, long h/o alcohol addiction, cocaine and cannabis abuse, one self reported psychiatric admission, currently under the service of private psychiatrist , self reported h/o 4x suicidal attempts, 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 patient was seen at the treatment team meeting pt presented to be tearful and anxious pt appears to be depressed, but affect was poor reactive today patient presented better organized to compare with the time of admission, but still has pressured speech, thought process circumstantial and tangential, difficult to stay focus and concentrate. med teaching provided. patient tolerated medications well, no side effects observed or reported, aims 0 , EPSNone DSM 5 Diagnosis: r/o bipolar II depressed with psychosis r/o substance induced psychosis (withdrawals) r/o delirium, pt has UTI polysubstance abuse most likely it is all the above, combined Medication Change: Yes (Abilify increased) Medical Record Reviewed: Yes Mental Status Examination - Cognitive Function Orientation: Person, Place, Situation, Time Memory: Intact Attention: Poor Concentration: Poor Association: Loose Fund of Knowledge: Poor - Mood Mood: Depressed, Anxious - Affect Affect: Flat - Formal Thought Process Formal Thought Process: No Impairment (denied) - Suicidal Ideation Suicidal Ideation: No - Homicidal Ideation Homicidal Ideation: No Goal/Treatment Plan - Goal/Treatment Plan Need for Continued Stay: Remain at risks for inpatient hospitalization, Severe depression anxiety, Discharge may exacerbated symptoms, Severe functional impairment Progress Toward Problem(s) and Goals/Treatment Plan: milieu/structure/supportive therapy Disulfiram 500 mg PO DAILYpt might consider that, but refused for now pt was educated about naltrexone ALPRAZolam [Xanax] 1 mg PO tid for anxiety PRN klonopin 2mg po bid scheduled Dextromethorphan HBr/Quinidine [Nuedexta 20-10 mg Capsule] d/c Lamotrigine will be resumed 100mg po bid for mood stabilization as per pt's request prozac started 20mg po daily for depression and anxiety abilify 7.55mg po bid for mood stabilization sonata 10mg po hs for insomnia will call medical consult SW evaluation Family involvement Follow up on labs Will monitor closely Pt was educated about risk/benefits and alternatives of medications, coping strategies (safety plan, suicide prevention), relapse prevention, importance of follow up with psychiatrist and therapist, stay away from drugs/alcohol/smoking Estimated Date of D/C: 08/25/17
[2017-08-22] MEDS: Fluticasone-Salmeterol 500-50mcg Diskus INH SCH (17:00)
--- NOTE | 2017-08-22 23:16 | PN ---
DATE: PULMONARY PROGRESS NOTE REFERRING PHYSICIAN: Dr. Patsy Sexton. SUBJECTIVE: She is lying in the bed, sleepy, arousable, night was unremarkable, feels better, cough, decreased shortness of breath. No nausea, no vomiting, no diarrhea. No leg pain or leg swelling. OBJECTIVE: GENERAL: In no acute distress. VITAL SIGNS: Temperature is 98, heart rate is 88, respiratory rate is 20, blood pressure 140/72. HEENT: Moist mucous membranes. Small oral cavity. NECK: Supple. No JVD. LUNGS: Have a few rhonchi. HEART: S1 and S2. ABDOMEN: Soft, nontender. No organomegaly. EXTREMITIES: No edema. NEUROLOGIC: Sleepy, arousable, follows simple commands. MEDICATIONS: She is on Abilify 7.5 mg twice a day, Advair 500/50 one puff twice a day, Cepacol lozenges q.2 hours p.r.n., Geodon 20 mg p.o. q.8 hours p.r.n. and Geodon 20 mg IM q.8 hours p.r.n., insulin coverage, Klonopin 2 mg twice a day, lamotrigine 100 mg twice a day, Maalox 30 mL daily p.r.n., milk of magnesia p.r.n., Nicoderm patch daily, Pepcid 40 mg at bedtime, Phenergan DM 5 mL q.4 hours p.r.n., fluoxetine 20 mg daily, Sonata 10 mg at bedtime, Tylenol p.r.n., Ventolin HFA two puff q.4 hours p.r.n., Xanax 1 mg p.o. three times a day, Zithromax 500 mg daily. LABORATORY DATA: Showed blood sugar this morning is 202. IMPRESSION AND PLAN: Major depression/bipolar disorder, suicidal ideation, chronic obstructive lung disease with acute bronchitis, being followed by Psychiatry and primary medical doctor. Pulmonary point of view, continue bronchodilator, keep head at 45 degrees, sleep apnea precaution, gastric prophylaxis. Continue therapy. Thank you and we will follow with you. Jennifer Powers MD
[2017-08-22] MEDS: Benzocaine/Menthol (Cepacol) Lozenge MT PRN (23:27)
[2017-08-23] MEDS: Insulin Reg-MEDIUM-Coverage SC SCH ×4 (07:30→22:20)
[2017-08-23] MEDS: Fluticasone-Salmeterol 500-50mcg Diskus INH SCH ×3 (09:21→19:12)
--- NOTE | 2017-08-23 09:22 | PCM.PYCHPN ---
Psychiatric Progress Note - Psychiatric Progress Note Patient seen today, length of contact: 25 min Patient Chief Complaint: "feeling better and more hopeful" Problems Identified/Issues Discussed: I reviewed assessment and recent notes. I met with patient at bedside. She is adequately groomed and superficially cooperative. Oriented x3 and focus is fair. Patient indicates that she is "feeling better and more hopeful". Denies SI /HI or perceptual disturbance. Thought process is a little scattered but responses are relevant to questioning. Patient denies side effects or new discomfort or pain. She slept well last night. Staff notes indicate that patient is visible on the unit. She is labile, anxious and tearful at times. Required reminder about keeping her appearance appropriate because she took off her white jacket. Overnight she required Xanax and then Geodon po for anxiety and mild agitation, respectively. Diagnostic Results: r/o bipolar II depressed with psychosis r/o substance induced psychosis (withdrawals) r/o delirium, pt has UTI polysubstance abuse *most likely it is all the above, combined Medication Change: Yes (Abilify increased) Medical Record Reviewed: Yes Mental Status Examination - Cognitive Function Orientation: Person, Place, Situation, Time Memory: Intact Attention: Poor Concentration: Poor Association: Loose Fund of Knowledge: Poor - Mood Mood: Depressed ("feeling better and more hopeful"), Anxious - Affect Affect: Flat - Formal Thought Process Formal Thought Process: No Impairment (a little scattered) - Suicidal Ideation Suicidal Ideation: No - Homicidal Ideation Homicidal Ideation: No Goal/Treatment Plan - Goal/Treatment Plan Need for Continued Stay: Remain at risks for inpatient hospitalization, Severe depression anxiety, Discharge may exacerbated symptoms, Severe functional impairment Progress Toward Problem(s) and Goals/Treatment Plan: c/w current tx and plan No new weekend labs thus far Vitals reviewed and noted below: Selected Entries 08/23/17 08:22 Temperature 97.8 F Pulse Rate 77 Respiratory 18 Rate Blood Pressure 104/67 Estimated Date of D/C: 08/25/17
--- NOTE | 2017-08-23 16:55 | PN ---
DATE: 08/23/2017 SUBJECTIVE: I saw her in her room. I believe she is improving. She is looking better, talking better, feeling better. She is here with depression, suicidal ideation, marijuana, cocaine, and also visual and auditory hallucinations, positive UTI, also an upper respiratory infection. She has ADHD. She has leukocytosis, high cholesterol. MEDICATIONS: She is now on Abilify, Advair, Cepacol, Geodon, insulin, Klonopin, Lamictal, Maalox, milk of magnesia, Nicoderm, Pepcid, Phenergan DM, Prozac, Sonata, Tylenol, Ventolin, Xanax, and Zithromax. PHYSICAL EXAMINATION: VITAL SIGNS: She has 97.8 temp, 77 pulse, 104/67 blood pressure, and 18 respiratory rate. HEENT: Head is atraumatic and normocephalic. Throat is moist. NECK: Supple. HEART: Regular rate. LUNGS: completely clear to auscultation today. Yesterday, it was very junky. Today, she is much better. ABDOMEN: Soft, obese. EXTREMITIES: No edema. LABORATORY DATA: She has a 9.9 white count, much better, it was high when she came in; 14.3 hemoglobin with 41.8 hematocrit with 347 platelets. She has a chemistry of 141 sodium, potassium 4.3, BUN 10, and creatinine 0.7. Last blood sugar was 287, I have to adjust her blood sugars. ASSESSMENT AND PLAN: I do think she is starting to improve. She is being seen by Pulmonary and Psychiatry. Continue with aggressive treatment and care. I will adjust her medications for diabetes. Junior Rider DO [facility]
[2017-08-23] MEDS: Magnesium Hydroxide Susp 30 ml UD PO PRN (17:50)
[2017-08-23] MEDS: Promethazine DM 6.25 mg-15 mg/5 ml Syrup PO PRN (19:16)
--- NOTE | 2017-08-24 02:55 | PN ---
DATE: 08/23/2017 REFERRING PHYSICIAN: Dr. Patsy Sexton. SUBJECTIVE: She is ambulating in the hallway today. Feels better. Slept well. Breathing is better. Still has a mild cough. No nausea, no vomiting, no diarrhea. No leg pain or leg swelling. OBJECTIVE: GENERAL: In no acute distress. VITAL SIGNS: Temperature is 98, heart rate is 83, respiratory rate is 20, blood pressure 109/65. HEENT: Moist mucous membranes. Crowded airway. NECK: Supple. No JVD. LUNGS: Have a few scattered rhonchi. HEART: S1 and S2. ABDOMEN: Soft, nontender. No organomegaly. EXTREMITIES: No edema. NEUROLOGIC: Awake, alert, follows simple commands. LABORATORY DATA: Shows blood sugar 190. MEDICATIONS: She is on Abilify 7.5 mg twice a day, Advair 500/50 one puff twice a day, Cepacol lozenges q.2 hours p.r.n., Geodon 20 mg q.8 hours p.r.n. and Geodon 20 mg IM q.8 hours p.r.n., insulin coverage, Januvia 50 mg daily, Klonopin 2 mg twice a day, Lamictal 100 mg twice a day, Maalox p.r.n. basis, milk of magnesia p.r.n. basis, Nicoderm patch daily, Pepcid 40 mg at bedtime, Phenergan DM 5 mL q.6 hours p.r.n., Prozac 25 mg daily, Sonata 10 mg at bedtime, Tylenol p.r.n. basis, Ventolin HFA two puffs q.6 hours p.r.n., Xanax 1 mg three times a day p.r.n., Zithromax 500 mg daily. IMPRESSION AND PLAN: Major depression/bipolar disorder, suicidal ideation, chronic obstructive lung disease. From a Pulmonary point of view, doing okay. Continue inhaled bronchodilator. Gastric prophylaxis. Fall precautions. Continue therapy. Thank you and we will follow with you. Jennifer Powers MD [facility] # [id number]
[2017-08-24] MEDS: Insulin Reg-MEDIUM-Coverage SC SCH ×4 (08:12→21:45)
--- NOTE | 2017-08-24 09:21 | PCM.PYCHPN ---
Psychiatric Progress Note - Psychiatric Progress Note Patient seen today, length of contact: 25 min Patient Chief Complaint: "feeling better and more hopeful" Problems Identified/Issues Discussed: I reviewed recent notes and met with patient at bedside. She is adequately groomed and superficially cooperative. Oriented x3 and focus is fair. Patient indicates that she is "feeling better and more hopeful". Denies SI/HI or perceptual disturbance. Thought process is a little scattered but she can be redirected so the majority of her responses are relevant to questioning. Patient denies side effects or new discomfort or pain. She slept well again last night. Staff notes indicate that patient is visible on the unit. She appeared a little brighter to staff yesterday and during my visit today. She can still be labile and anxious at times. Required reminder on Friday about keeping her appearance appropriate because she took off her white jacket. Overnight on Friday she required Xanax and then Geodon po for anxiety and mild agitation. There were no major behavioral issues over the weekend. Diagnostic Results: r/o bipolar II depressed with psychosis r/o substance induced psychosis (withdrawals) r/o delirium, pt has UTI polysubstance abuse *most likely it is all the above, combined Medication Change: Yes (Abilify increased) Medical Record Reviewed: Yes Mental Status Examination - Cognitive Function Orientation: Person, Place, Situation, Time Memory: Intact Attention: Poor Concentration: Poor Association: Loose Fund of Knowledge: Poor - Mood Mood: Depressed ("feeling better and more hopeful"), Anxious - Affect Affect: Flat - Formal Thought Process Formal Thought Process: No Impairment (a little scattered but redirectable ) - Suicidal Ideation Suicidal Ideation: No - Homicidal Ideation Homicidal Ideation: No Goal/Treatment Plan - Goal/Treatment Plan Need for Continued Stay: Remain at risks for inpatient hospitalization, Severe depression anxiety, Discharge may exacerbated symptoms, Severe functional impairment Progress Toward Problem(s) and Goals/Treatment Plan: c/w current tx and plan Appreciate f/u by Dr. Rider on 08/23/17~adjusting diabetic medications Appreciate f/u by Dr. Powers on 08/23/17~patient is doing okay from a pulmonary standpoint No new weekend labs Vitals reviewed and noted below: 08/24/17 07:40 Temperature 97.7 F Pulse Rate 85 Respiratory 20 Rate Blood Pressure 120/86 Estimated Date of D/C: 08/25/17
[2017-08-24] MEDS: Promethazine DM 6.25 mg-15 mg/5 ml Syrup PO PRN ×3 (10:30→21:46)
[2017-08-24] MEDS: Magnesium Hydroxide Susp 30 ml UD PO PRN (10:57)
[2017-08-24] MEDS: Benzocaine/Menthol (Cepacol) Lozenge MT PRN (16:25)
[2017-08-24] MEDS: Fluticasone-Salmeterol 500-50mcg Diskus INH SCH (17:29)
--- NOTE | 2017-08-25 02:24 | PN ---
DATE: PULMONARY PROGRESS NOTE REFERRING PHYSICIAN: Patsy Sexton MD. SUBJECTIVE: Patient is ambulating in the room, complaining about nocturnal headache, also some daytime headache. No rhinitis. No nausea, no vomiting, no diarrhea. No leg pain or leg swelling. OBJECTIVE: GENERAL: In no acute distress. VITAL SIGNS: Temperature is 98, heart rate is 85, respiratory rate is 20, blood pressure 127/75. HEENT: Moist mucous membranes. No ulcer or thrush noted. NECK: Supple. No JVD. LUNGS: Have fair airflow with rhonchi. HEART: S1, S2. ABDOMEN: Soft, nontender. No organomegaly. EXTREMITIES: There is no edema. NEUROLOGIC: Awake, alert, follows simple commands. MEDICATIONS: She is on Abilify 7.5 mg twice a day, Advair 500/50 one puff twice a day, Cepacol lozenges q.2 hours p.r.n., Geodon 20 mg q.8 hours p.r.n., also Geodon 20 mg IM q.8 hours., insulin coverage, Januvia 50 mg daily, clonazepam 2 mg twice a day, lamotrigine 100 mg twice a day, Maalox 30 mL daily, milk of magnesia 30 mL daily p.r.n., Nicoderm patch daily, Pepcid 40 mg daily, Promethazine DM 5 mL q.6 hours p.r.n., Prozac 20 mg daily, zaleplon 10 mg at bedtime, Tylenol p.r.n., Ventolin HFA two puffs q.6 hours p.r.n., Xanax 1 mg three times a day p.r.n., Xopenex inhaled q.6 hours, Zithromax 500 mg daily. LABORATORY DATA: Shows blood sugar is 230. IMPRESSION AND PLAN: Major depression, bipolar disorder, suicidal ideation, chronic obstructive lung disease. From a Pulmonary point of view, she has some cough, on Advair and Ventolin. We will get prednisone 10 mg daily, starting in the morning. Gastric prophylaxis, fall precautions. Continue therapy. Thank you and we will follow with you. Jennifer Powers MD
[2017-08-25] MEDS: Fluticasone-Salmeterol 500-50mcg Diskus INH SCH ×3 (06:10→18:17)
[2017-08-25] MEDS: Insulin Reg-MEDIUM-Coverage SC SCH ×4 (07:53→21:49)
[2017-08-25] MEDS: Levalbuterol 0.63 MG/3 ML Inhal Soln UD IH PRN (10:23)
--- NOTE | 2017-08-25 10:23 | PN ---
DATE: 08/24/2017 SUBJECTIVE: I saw her. She is telling me she gets short of breath and coughing fits at nighttime, wants a breathing treatment. I will order her some Xopenex. She is currently on Abilify, Advair, Cepacol, Geodon, insulin coverage, Januvia, Klonopin, Lamictal, milk of magnesia, Maalox, NicoDerm, Pepcid, promethazine, Prozac, Sonata, Tylenol, Xanax, Zithromax and I added Xopenex. She is eating. She is walking in the halls. She is trying to get better mentally. PHYSICAL EXAMINATION VITAL SIGNS: She has 97.7 temperature, 85 pulse, 120/86 blood pressure, 20 respiratory rate. HEENT: Head is atraumatic, normocephalic. Throat is moist. NECK: Supple. HEART: Regular rate. LUNGS: Decreased breath sounds, but clear. ABDOMEN: Soft, obese. EXTREMITIES: No edema. DATA: She has a 9.9 white count, 14.3 hemoglobin, 347,000 platelets. Last blood sugars were 118, 190, then 139; ever since the Januvia, she is doing better. She had a few things going on with her suicidal ideation, depression, upper respiratory infection, UTI, diabetes, ADHD, and some asthma. Hopefully, the Xopenex nebulizer treatments will help her. I will watch her closely, keeping her eye on blood sugars too. Junior Rider DO [facility]
--- NOTE | 2017-08-25 12:12 | PN ---
DATE: SUBJECTIVE: I saw her in the psych floor. She is doing a little bit better. She is still with a little bit shortness of breath at nighttime. I ordered some Xopenex, she did not get up last night. Hopefully, she will ask for tonight to help her sleep and breathe a little bit better. She is participating and is starting to feel better mentally MEDICATIONS: She is on Abilify, Advair, Cepacol, Geodon, Januvia, Klonopin, Lamictal, Maalox, milk of magnesia, NicoDerm, Pepcid, Phenergan, prednisone, Prozac, Sonata, Tylenol, Ventolin, Xanax, Xopenex and Zithromax. PHYSICAL EXAMINATION VITAL SIGNS: Temperature 97.8, 81 pulse, 115/82 blood pressure, 20 respiratory rate. HEENT: Head is atraumatic, normocephalic. HEART: Regular rate. LUNGS: Clear to auscultation. ABDOMEN: Soft, mildly obese. EXTREMITIES: No edema. She is here for suicidal ideation, depression, upper respiratory infection, urinary tract infection, diabetes, attention deficit hyperactivity disorder, and she has history of asthma. She has a 9.9 white count. Last blood sugar was 134. I will decrease her prednisone to 5 mg. Continue with aggressive treatment and care as per Psychiatry. Junior Rider DO
--- NOTE | 2017-08-25 15:41 | PCM.PYCHPN ---
Psychiatric Progress Note - Psychiatric Progress Note Patient seen today, length of contact: 25 min Patient Chief Complaint: "I saw a bug again, I thought is was moving, but it was crack on the wall, I thought I am loosing my mind" Problems Identified/Issues Discussed: Suicide/ homicide prevention, past psychiatric h/o, current psychiatric symptoms , medical problems, risk/benefits and alternatives of medications, medications compliance, coping strategies, substance abuse h/o, relapse prevention, importance of follow up with psychiatrist and therapist, discharge plan. Medical Problems: UTI, constipation Diagnostic Results: 08/21/17 07:30 08/21/17 07:30 Lab Results 08/21/17 16:35: POC Glucose (mg/dL) 167 H 08/21/17 11:01: POC Glucose (mg/dL) 264 H 08/21/17 07:30: Sodium 141, Potassium 4.3, Chloride 102, Carbon Dioxide 26, Anion Gap 16, BUN 10, Creatinine 0.7, Est GFR ( Amer) > 60, Est GFR (Non- Af Amer) > 60, Random Glucose 215 H, Calcium 9.7, Total Bilirubin 0.4, AST 31, ALT 45, Alkaline Phosphatase 118, Total Protein 7.1, Albumin 4.0, Globulin 3.2, Albumin/Globulin Ratio 1.3 08/21/17 07:30: WBC 9.9, RBC 4.81, Hgb 14.3, Hct 41.8, MCV 86.9, MCH 29.7, MCHC 34.2, RDW 12.9, Plt Count 347, MPV 9.1 08/21/17 07:15: POC Glucose (mg/dL) 161 H 08/20/17 21:14: POC Glucose (mg/dL) 198 H 08/20/17 17:12: POC Glucose (mg/dL) 125 H 08/20/17 11:14: POC Glucose (mg/dL) 236 H 08/20/17 07:20: RPR Nonreactive 08/20/17 07:20: TSH 3rd Generation 1.28 08/20/17 07:20: Fasting Glucose 158 H, Triglycerides 129, Cholesterol 209 H, LDL Cholesterol Direct 152 H, HDL Cholesterol 43 08/19/17 15:25: Urine Color Yellow, Urine Appearance Turbid, Urine pH 6.0, Ur Specific [place] >= 1.030, Urine Protein 30 H, Urine Glucose (UA) Negative, Urine Ketones Trace H, Urine Blood Negative, Urine Nitrate Negative, Urine Bilirubin Negative, Urine Urobilinogen 0.2, Ur Leukocyte Esterase Negative, Urine RBC Negative, Urine WBC 1 - 3, Ur Epithelial Cells Many, Urine Bacteria Many, Urine HCG, Qual Negative 08/19/17 15:25: Urine Opiates Screen Negative, Urine Methadone Screen Negative, Ur Barbiturates Screen Negative, Ur Phencyclidine Scrn Negative, Ur Amphetamines Screen Negative, U Benzodiazepines Scrn Positive, U Oth Cocaine Metabols Negative, U Cannabinoids Screen Positive H 08/19/17 14:15: Alcohol, Quantitative < 10 08/19/17 14:15: Salicylates < 1 L, Acetaminophen < 10.0 L 08/19/17 14:15: Sodium 141, Potassium 3.8, Chloride 103, Carbon Dioxide 25, Anion Gap 16, BUN 8, Creatinine 0.7, Est GFR ( Amer) > 60, Est GFR (Non- Af Amer) > 60, Random Glucose 139 H, Calcium 10.2, Total Bilirubin 0.5, AST 34, ALT 37, Alkaline Phosphatase 148 H, Total Protein 7.9, Albumin 4.5, Globulin 3.4 , Albumin/Globulin Ratio 1.3 08/19/17 14:15: WBC 11.8 H, RBC 5.03, Hgb 15.2, Hct 42.7, MCV 84.9, MCH 30.2, MCHC 35.6, RDW 13.0, Plt Count 421, MPV 9.1, Gran % 59.3, Lymph % (Auto) 32.7, [place] % (Auto) 5.8, Eos % (Auto) 1.9, Baso % (Auto) 0.3, Gran # 6.99 H, Lymph # ( Auto) 3.9 H, [place] # (Auto) 0.7 H, Eos # (Auto) 0.2, Baso # (Auto) 0.04 Vital Signs Temp Pulse Resp BP Pulse Ox 08/21/17 16:00 88 139/95 H 08/21/17 06:44 98.2 F 75 20 137/85 08/20/17 15:44 80 127/64 08/20/17 07:13 98.1 F 75 113/70 08/19/17 21:00 98.4 F 70 20 133/84 08/19/17 20:45 89 18 131/85 100 08/19/17 18:21 82 18 137/86 98 08/19/17 16:21 74 18 129/84 98 08/19/17 14:08 98.2 F 100 H 19 135/89 98 Temp Pulse Resp BP Pulse Ox 97.8 F 81 20 115/82 100 08/25/17 07:23 08/25/17 07:23 08/25/17 07:23 08/25/17 07:23 08/19/17 20:45 DSM 5 Symptoms Update: Shortly pt is 52yo single, female, long h/o alcohol addiction, cocaine and cannabis abuse, one self reported psychiatric admission, currently under the service of private psychiatrist , self reported h/o 4x suicidal attempts, works in the [employer] system, brought herself to the hospital looking for help for her depressive symptoms, possible suicidal ideation with the plan to jump in front of the train, psychotic symptoms, command type hallucinations and visual hallucinations, pt needs further evaluation and stabilization, medication adjustment because pt deemed to be in danger to self. patient was seen at the treatment team meeting, pt said that she saw a bug yesterday, pt then started to cry, said "I am losing my mind, I don't know what is going on with me", pt said she was not not able to sleep. pt presented to be tearful and anxious, asked to be resumed on seroquel, risk, benefits and alternatives explained. patient presented better organized to compare with the time of admission, still has difficulties to concentrate and stay focused. med teaching provided. patient tolerated medications well, no side effects observed or reported, aims 0 , EPS None DSM 5 Diagnosis: r/o bipolar II depressed with psychosis r/o substance induced psychosis (withdrawals) r/o delirium, pt has UTI polysubstance abuse most likely it is all the above, combined Medication Change: Yes (abilify d/c, seroquel started, xanax d/c) Medical Record Reviewed: Yes Consults ordered or reviewed: medical consult appreciated Mental Status Examination - Cognitive Function Orientation: Person, Place, Situation, Time Memory: Intact Attention: Poor Concentration: Poor Association: WNL Fund of Knowledge: Poor - Mood Mood: Depressed ("I am losing my mind"), Anxious - Affect Affect: Flat (and tearful) - Formal Thought Process Formal Thought Process: Hallucinations (pt had visual hallucinations) - Suicidal Ideation Suicidal Ideation: No - Homicidal Ideation Homicidal Ideation: No Goal/Treatment Plan - Goal/Treatment Plan Need for Continued Stay: Remain at risks for inpatient hospitalization, Severe depression anxiety, Discharge may exacerbated symptoms, Severe functional impairment Progress Toward Problem(s) and Goals/Treatment Plan: milieu/structure/supportive therapy Disulfiram 500 mg PO DAILYpt might consider that, but refused for now pt was educated about naltrexone ALPRAZolam [Xanax] 0.5mg bid prn klonopin 2mg po bid scheduled Lamotrigine will be resumed 100mg po bid for mood stabilization as per pt's request prozac started 20mg po daily for depression and anxiety abilify d/c sonata d/c ambien 5mg po hs for insomnia seroquel 150mg po bid for mood stabilization and psychosis will call medical consult SW evaluation Family involvement Follow up on labs Will monitor closely Pt was educated about risk/benefits and alternatives of medications, coping strategies (safety plan, suicide prevention), relapse prevention, importance of follow up with psychiatrist and therapist, stay away from drugs/alcohol/smoking Estimated Date of D/C: 08/29/17
[2017-08-25] MEDS: Promethazine DM 6.25 mg-15 mg/5 ml Syrup PO PRN (21:01)
--- NOTE | 2017-08-26 02:35 | PN ---
DATE: PULMONARY PROGRESS NOTE REFERRING PHYSICIAN: Patsy Sexton MD SUBJECTIVE: She is moving in the hallway, feels better today. Slept better last night. Still short of breath. No nausea, no vomiting, no diarrhea. No leg pain or leg swelling. OBJECTIVE: GENERAL: In no acute distress. VITAL SIGNS: Temperature is 98, heart rate is 90, respiratory rate is 20, blood pressure 132/81. HEENT: Moist mucous membranes. Crowded airway. NECK: Supple. No JVD. LUNGS: Have a few scattered rhonchi. HEART: S1 and S2. ABDOMEN: Soft, nontender. No organomegaly. EXTREMITIES: There is no edema. NEUROLOGIC: Awake, alert, follows simple commands. MEDICATIONS: She is on Advair 500/50 one puff twice a day, Ambien 5 mg at bedtime p.r.n., Cepacol lozenges q.2 hours p.r.n., Colace 100 mg twice a day, Geodon 20 mg q.8 hours p.r.n., Geodon 20 mg IM q.8 hours p.r.n., insulin coverage, Januvia 50 mg daily, Klonopin 2 mg twice a day, lamotrigine 100 mg twice a day, Maalox 30 mL daily, milk of magnesia 30 mL daily p.r.n., Nicoderm patch daily, Pepcid 40 mg at bedtime, Promethazine DM 5 mL q.6 hours p.r.n., prednisone 5 mg daily, Prozac 25 mg daily, Seroquel 150 mg a.m. and at bedtime, Tylenol p.r.n., Ultram 50 mg q.8 hours p.r.n., Ventolin HFA two puffs q.4-6 hours p.r.n., Xanax 0.5 mg twice a day, also Xopenex 0.63 q.6 hours. p.r.n., Zithromax 500 mg daily. LABORATORY DATA: Shows blood sugar this morning, 182. IMPRESSION AND PLAN: Major depression, bipolar disorder, suicidal ideation, chronic obstructive lung disease. Pulmonary point of view, doing okay. Continue Advair, Ventolin, prednisone, also on Zithromax. Pulmonary , stable to continue therapy. Thank you and we will follow with you. Jennifer Powers MD
[2017-08-26] MEDS: Insulin Reg-MEDIUM-Coverage SC SCH ×4 (08:37→22:08)
[2017-08-26] MEDS: Fluticasone-Salmeterol 500-50mcg Diskus INH SCH ×2 (09:05→18:16)
[2017-08-26] MEDS: Promethazine DM 6.25 mg-15 mg/5 ml Syrup PO PRN ×3 (09:45→23:05)
[2017-08-26] MEDS: Benzocaine/Menthol (Cepacol) Lozenge MT PRN ×2 (11:38→22:33)
--- NOTE | 2017-08-26 15:07 | PN ---
DATE: SUBJECTIVE: I saw her in psychiatric floor. She tells me she might be going home today. I think she is doing a lot better. She is eating well, walking on the floor well. She is dressing herself well. Her hair looks good. She is here for suicidal ideation, depression, URI, UTI, diabetes, ADHD, and asthma. She is currently on Advair, Ambien, Cepacol, Colace, Geodon, insulin, Januvia, Klonopin, Lamictal, Maalox, milk of magnesia, NicoDerm, Pepcid, Phenergan, prednisone which I am going to stop, Prozac, Seroquel, Tylenol, Ultram, Ventolin, Xanax, and Xopenex. She did quite well medically and also, psychologically. PHYSICAL EXAMINATION VITAL SIGNS: She is 98.3 temperature, 86 pulse, 126/69 blood pressure, 18 respiratory rate. HEENT: Head is atraumatic, normocephalic. Throat is moist. NECK: Supple. HEART: Regular rate. LUNGS: Decreased breath sounds, but clear. No wheezes. No rhonchi. No rales ABDOMEN: Soft, obese, nontender. Positive bowel sounds. EXTREMITIES: No edema. LABORATORY DATA: She has a 9.9 white count, 14.3 hemoglobin, blood sugar was 125, the Januvia has made a big difference. I will like to continue on that. ASSESSMENT AND PLAN: I think the urinary tract infection and upper respiratory infection has improved with antibiotics. I then stopped the steroids, so anymore after today and hopefully, should do very well on the outpatient; hopefully, she will take her medication; when she stops, that is when she gets into trouble and she understands that. Rebecca Rider DO [email or web address]
--- NOTE | 2017-08-26 17:52 | PCM.PYCHPN ---
Psychiatric Progress Note - Psychiatric Progress Note Patient seen today, length of contact: 30min Patient Chief Complaint: "I am feeling fine..." Problems Identified/Issues Discussed: Suicide/ homicide prevention, past psychiatric h/o, current psychiatric symptoms , medical problems, risk/benefits and alternatives of medications, medications compliance, coping strategies, substance abuse h/o, relapse prevention, importance of follow up with psychiatrist and therapist, discharge plan. Medical Problems: UTI, constipation Diagnostic Results: 08/21/17 07:30 08/21/17 07:30 Lab Results 08/21/17 16:35: POC Glucose (mg/dL) 167 H 08/21/17 11:01: POC Glucose (mg/dL) 264 H 08/21/17 07:30: Sodium 141, Potassium 4.3, Chloride 102, Carbon Dioxide 26, Anion Gap 16, BUN 10, Creatinine 0.7, Est GFR ( Amer) > 60, Est GFR (Non- Af Amer) > 60, Random Glucose 215 H, Calcium 9.7, Total Bilirubin 0.4, AST 31, ALT 45, Alkaline Phosphatase 118, Total Protein 7.1, Albumin 4.0, Globulin 3.2, Albumin/Globulin Ratio 1.3 08/21/17 07:30: WBC 9.9, RBC 4.81, Hgb 14.3, Hct 41.8, MCV 86.9, MCH 29.7, MCHC 34.2, RDW 12.9, Plt Count 347, MPV 9.1 08/21/17 07:15: POC Glucose (mg/dL) 161 H 08/20/17 21:14: POC Glucose (mg/dL) 198 H 08/20/17 17:12: POC Glucose (mg/dL) 125 H 08/20/17 11:14: POC Glucose (mg/dL) 236 H 08/20/17 07:20: RPR Nonreactive 08/20/17 07:20: TSH 3rd Generation 1.28 08/20/17 07:20: Fasting Glucose 158 H, Triglycerides 129, Cholesterol 209 H, LDL Cholesterol Direct 152 H, HDL Cholesterol 43 08/19/17 15:25: Urine Color Yellow, Urine Appearance Turbid, Urine pH 6.0, Ur Specific [place] >= 1.030, Urine Protein 30 H, Urine Glucose (UA) Negative, Urine Ketones Trace H, Urine Blood Negative, Urine Nitrate Negative, Urine Bilirubin Negative, Urine Urobilinogen 0.2, Ur Leukocyte Esterase Negative, Urine RBC Negative, Urine WBC 1 - 3, Ur Epithelial Cells Many, Urine Bacteria Many, Urine HCG, Qual Negative 08/19/17 15:25: Urine Opiates Screen Negative, Urine Methadone Screen Negative, Ur Barbiturates Screen Negative, Ur Phencyclidine Scrn Negative, Ur Amphetamines Screen Negative, U Benzodiazepines Scrn Positive, U Oth Cocaine Metabols Negative, U Cannabinoids Screen Positive H 08/19/17 14:15: Alcohol, Quantitative < 10 08/19/17 14:15: Salicylates < 1 L, Acetaminophen < 10.0 L 08/19/17 14:15: Sodium 141, Potassium 3.8, Chloride 103, Carbon Dioxide 25, Anion Gap 16, BUN 8, Creatinine 0.7, Est GFR ( Amer) > 60, Est GFR (Non- Af Amer) > 60, Random Glucose 139 H, Calcium 10.2, Total Bilirubin 0.5, AST 34, ALT 37, Alkaline Phosphatase 148 H, Total Protein 7.9, Albumin 4.5, Globulin 3.4 , Albumin/Globulin Ratio 1.3 08/19/17 14:15: WBC 11.8 H, RBC 5.03, Hgb 15.2, Hct 42.7, MCV 84.9, MCH 30.2, MCHC 35.6, RDW 13.0, Plt Count 421, MPV 9.1, Gran % 59.3, Lymph % (Auto) 32.7, [place] % (Auto) 5.8, Eos % (Auto) 1.9, Baso % (Auto) 0.3, Gran # 6.99 H, Lymph # ( Auto) 3.9 H, [place] # (Auto) 0.7 H, Eos # (Auto) 0.2, Baso # (Auto) 0.04 Vital Signs Temp Pulse Resp BP Pulse Ox 08/21/17 16:00 88 139/95 H 08/21/17 06:44 98.2 F 75 20 137/85 08/20/17 15:44 80 127/64 08/20/17 07:13 98.1 F 75 113/70 08/19/17 21:00 98.4 F 70 20 133/84 08/19/17 20:45 89 18 131/85 100 02/20/18 18:21 82 18 137/86 98 08/19/17 16:21 74 18 129/84 98 08/19/17 14:08 98.2 F 100 H 19 135/89 98 Temp Pulse Resp BP Pulse Ox 97.8 F 81 20 115/82 100 08/25/17 07:23 08/25/17 07:23 08/25/17 07:23 08/25/17 07:23 08/19/17 20:45 DSM 5 Symptoms Update: Shortly pt is 52yo single, female, long h/o alcohol addiction, cocaine and cannabis abuse, one self reported psychiatric admission, currently under the service of private psychiatrist , self reported h/o 4x suicidal attempts, 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 patient was seen at the treatment team meeting room, pt reported that she feels better, pt appeared to be less anxious, but pt is disorganized, as per report pt submitted 48hr notice yesterday, pt tried to eloped from the unit. as per report pt's daughter called to the unit, said that pt is addicted to the pain meds and asked do not prescribe pain meds. at present moment pt does not meet criteria for involuntary commitment. med teaching provided. patient tolerated medications well, no side effects observed or reported, aims 0 , EPS None DSM 5 Diagnosis: r/o bipolar II depressed with psychosis r/o substance induced psychosis (withdrawals) r/o delirium, pt has UTI polysubstance abuse most likely it is all the above, combined Medication Change: Yes (seroquel incrased, klonopin decreased) Medical Record Reviewed: Yes Consults ordered or reviewed: medical consult appreciated Mental Status Examination - Cognitive Function Orientation: Person, Place, Situation, Time Memory: Intact Attention: Poor Concentration: Poor Association: WNL Fund of Knowledge: Poor - Mood Mood: Depressed ("I am losing my mind"), Anxious - Affect Affect: Flat (and tearful) - Formal Thought Process Formal Thought Process: Hallucinations (pt had visual hallucinations) - Suicidal Ideation Suicidal Ideation: No - Homicidal Ideation Homicidal Ideation: No Goal/Treatment Plan - Goal/Treatment Plan Need for Continued Stay: Remain at risks for inpatient hospitalization, Severe depression anxiety, Discharge may exacerbated symptoms, Severe functional impairment Progress Toward Problem(s) and Goals/Treatment Plan: milieu/structure/supportive therapy Disulfiram 500 mg PO DAILYpt might consider that, but refused for now pt was educated about naltrexone ALPRAZolam [Xanax] 0.5mg bid prn klonopin 1mg po tid scheduled Lamotrigine 100mg po bid for mood stabilization as per pt's request prozac started 20mg po daily for depression and anxiety ambien 5mg po hs for insomnia seroquel 200mg po bid for mood stabilization and psychosis will call medical consult SW evaluation Family involvement Follow up on labs Will monitor closely Pt was educated about risk/benefits and alternatives of medications, coping strategies (safety plan, suicide prevention), relapse prevention, importance of follow up with psychiatrist and therapist, stay away from drugs/alcohol/smoking Estimated Date of D/C: 08/29/17
[2017-08-26] MEDS: Levalbuterol 0.63 MG/3 ML Inhal Soln UD IH PRN (22:10)
[2017-08-26] MEDS: Magnesium Hydroxide Susp 30 ml UD PO PRN (22:33)
--- NOTE | 2017-08-27 03:18 | PN ---
DATE: 08/26/2017 PULMONARY PROGRESS NOTE REFERRING PHYSICIAN: Patsy Sexton MD SUBJECTIVE: She is having dinner with the rest of the patients. Night was unremarkable, slept better. Breathing is better. Decreased cough. No nausea, no vomiting, no diarrhea. No leg pain or leg swelling. OBJECTIVE: GENERAL: In no acute distress. VITAL SIGNS: Temperature is 98, heart rate is 80, respiratory rate is 18, blood pressure 114/81. HEENT: Moist mucous membranes. Crowded airway. NECK: Supple. No JVD. LUNGS: Have a fair airflow with a few rhonchi. HEART: S1 and S2. ABDOMEN: Soft, nontender. No organomegaly. EXTREMITIES: No edema. NEUROLOGIC: Awake, alert, follows simple commands. MEDICATIONS: She is on Advair 500/50 one puff twice a day, Ambien 5 mg at bedtime p.r.n., Cepacol lozenges q. 2 hours p.r.n., Colace 100 mg twice a day, Geodon 20 mg q. 8 hours p.r.n., Geodon 20 mg IM q. 8 hours p.r.n., insulin coverage, Januvia 50 mg daily, clonazepam 1 mg three times a day, Lamictal 100 mg twice a day, Maalox 30 mL daily, milk of magnesia daily, Nicoderm patch daily, Pepcid 40 mg at bedtime, Promethazine DM 5 mL q. 6 hours p.r.n., Prozac 20 mg daily, Seroquel 200 mg a.m. and at bedtime, Tylenol p.r.n., Ultram 50 mg q. 8 hours p.r.n., Ventolin HFA two puffs q. 6 hours p.r.n., Xopenex inhaled q. 6 hours. p.r.n. LABORATORY DATA: Shows blood sugar this morning, 149. IMPRESSION AND PLAN: Chronic obstructive lung disease, bipolar disorder, depression, suicidal ideation, may have a component of sleep apnea syndrome. From a Pulmonary point of view, she is doing well. Continue Advair and Ventolin. Continue prednisone, on Zithromax. Pulmonary status is stable to continue therapy. Thank you and we will follow with you. Jennifer Powers MD
[2017-08-27 07:14] VITALS: RESP 20
[2017-08-27] MEDS: Fluticasone-Salmeterol 500-50mcg Diskus INH SCH ×2 (08:31→17:49)
[2017-08-27] MEDS: Insulin Reg-MEDIUM-Coverage SC SCH ×4 (08:35→21:58)
--- NOTE | 2017-08-27 09:53 | PCM.BM ---
<DiomedesIsela - Last Filed: 08/27/17 09:49> Treatment Plan Problems - Problems identified on initial assessmt Ineffective Coping Date Initiated: 08/19/17 (met with pt 0n 08/27/17 and remain her thoughts is racing) Time Initiated: 22:00 Assessment reference: NA Status: Active Priority: 6 Medication Nonadherence Date Initiated: 08/19/17 Time Initiated: 22:00 Date resolved: 08/27/17 Assessment reference: NA Status: Active Priority: 7 Suicidal Ideation Date Initiated: 08/19/17 Time Initiated: 22:00 Date resolved: 08/27/17 Assessment reference: NA Status: Active Priority: 1 Command/Auditory Hallucinations Date Initiated: 08/19/17 Time Initiated: 22:00 Date resolved: 08/27/17 Assessment reference: NA Status: Active Priority: 2 Feelings of Worthlessness Date Initiated: 08/19/17 Time Initiated: 22:00 Date resolved: 08/27/17 Assessment reference: NA Status: Active Priority: 3 Hopelessness/Helplessness Date Initiated: 08/19/17 Time Initiated: 22:00 Date resolved: 08/27/17 Assessment reference: NA Status: Active Priority: 4 Anxiety Date Initiated: 08/19/17 (met on 08/27/17 and remain gets anxious at times) Time Initiated: 22:00 Assessment reference: NA Status: Active Priority: 5 Treatment assets and liabiliti Patient Assests: cooperative, ADL independent, negotiates basic needs Patient Liabilities: relationship conflicts - Milieu Protocol Maintain good personal hygiene: daily Encourage regular showers, every shift Remind patient to perform daily oral care, every shift Assist patient to perform ADL's Maintain personal safety: every shift Educate patient to report safety concerns to staff, every shift Monitor environment for contraband/sharps Medication safety: Monitor for expected outcome, potential side effects: every shift, Assess barriers to learning: every shift, Assess readiness for medication education: every shift Milieu Narrative: milieu/structure/supportive therapy Disulfiram 500 mg PO DAILYpt might consider that, but refused for now pt was educated about naltrexone ALPRAZolam [Xanax] 0.5mg bid prn klonopin 1mg po tid scheduled Lamotrigine 100mg po bid for mood stabilization as per pt's request prozac started 20mg po daily for depression and anxiety ambien 5mg po hs for insomnia seroquel 200mg po bid for mood stabilization and psychosis will call medical consult SW evaluation Family involvement Follow up on labs Will monitor closely Pt was educated about risk/benefits and alternatives of medications, coping strategies (safety plan, suicide prevention), relapse prevention, importance of follow up with psychiatrist and therapist, stay away from drugs/alcohol/smoking Family Contact Family involvement: Family/SO is involved - Outside Agency Dr. Alvarez Care involvment: Not involved Discharge/Continuing Care - Education Needs Education Needs: Patient Medication, Patient Diagnosis/Disease Process, Patient Coping Skills, Patient Anger Management skills, Patient Placement options, Patient Community resources, Patient Activities of Daily Living, Patient Pain, Patient Nutrition, Patient Uses of Medical Equipment, Patient Health Practices/ Safety, Patient Personal Hygiene/Grooming, Patient Aftercare Safety Plan, Patient Other - Discharge Discharge Criteria: Tolerates medication w/o severe side effects, Free of Suicidal thoughts - Treatment Team Participation Patient/Family/SO Statement: milieu/structure/supportive therapy Disulfiram 500 mg PO DAILYpt might consider that, but refused for now pt was educated about naltrexone ALPRAZolam [Xanax] 0.5mg bid prn klonopin 1mg po tid scheduled Lamotrigine 100mg po bid for mood stabilization as per pt's request prozac started 20mg po daily for depression and anxiety ambien 5mg po hs for insomnia seroquel 200mg po bid for mood stabilization and psychosis will call medical consult SW evaluation Family involvement Follow up on labs Will monitor closely Pt was educated about risk/benefits and alternatives of medications, coping strategies (safety plan, suicide prevention), relapse prevention, importance of follow up with psychiatrist and therapist, stay away from drugs/alcohol/smoking Treatment Plan Review - Problem Ineffective Coping Time Initiated: 22:00 Medication Nonadherence Time Initiated: 22:00 Suicidal Ideation Time Initiated: 22:00 Command/Auditory Hallucinations Time Initiated: 22:00 Feelings of Worthlessness Time Initiated: 22:00 Hopelessness/Helplessness Time Initiated: 22:00 Anxiety Time Initiated: 22:00 <Patsy Sexton A - Last Filed: 08/27/17 14:44> - Diagnosis (1) Bipolar II disorder Status: Acute Interventions: 08/27/17 14:45 mood is better denied thoughts of harming self or others, but still thought process is disorganized Compliance with medications and follow up appointments Suicide and homicide risk assessment and prevention Relapse prevention Reduction of symptoms Improve functional status Family involvement As outpatient: cognitive behavioral therapy 08/27/17 14:46 (2) Polysubstance abuse Status: Acute Interventions: 08/27/17 14:45 pt is off tramadol klonopin is less addictive overall has fair insight (3) PTSD (post-traumatic stress disorder) Status: Acute Interventions: 08/27/17 14:46 much better <Roseanne Ordoñez Y - Last Filed: 08/27/17 16:09>
--- NOTE | 2017-08-27 10:25 | PN ---
DATE: SUBJECTIVE: I saw her in the psychiatric floor. She is feeling well. No acute complaints. She tells me she is eating well, trying in groups and participating and is in good spirits. No acute complaints. She is on Advair, Ambien, Cepacol, Colace, Geodon, insulin, Januvia, Klonopin, Lamictal, Maalox, milk of magnesia, Nicoderm, Pepcid, Phenergan DM, Prozac, Seroquel, Tylenol, Ultram. Not on Xopenex because she tells me her breathing is much better. PHYSICAL EXAMINATION: VITAL SIGNS: She has a 97 temp, 78 pulse, 134/90 blood pressure, 20 respiratory rate. HEENT: Head is atraumatic, normocephalic. HEART: Regular rate. LUNGS: Clear to auscultation. ABDOMEN: Soft, obese. EXTREMITIES: No edema. ASSESSMENT AND PLAN: She is being seen by Psychiatry and Pulmonology. She tells me she wants to go home. She had suicidal ideation, depression, upper respiratory infection, urinary tract infection, diabetes, attention deficit hyperactivity disorder, asthma, some constipation. As per Psychiatry, we will continue aggressive treatment and care. Junior Rider DO
[2017-08-27] MEDS: Levalbuterol 0.63 MG/3 ML Inhal Soln UD IH PRN ×2 (11:50→22:30)
--- NOTE | 2017-08-27 14:49 | PCM.PYCHPN ---
Psychiatric Progress Note - Psychiatric Progress Note Patient seen today, length of contact: 30min Patient Chief Complaint: "I am feeling fine..." Problems Identified/Issues Discussed: Suicide/ homicide prevention, past psychiatric h/o, current psychiatric symptoms , medical problems, risk/benefits and alternatives of medications, medications compliance, coping strategies, substance abuse h/o, relapse prevention, importance of follow up with psychiatrist and therapist, discharge plan. Medical Problems: UTI, constipation Diagnostic Results: 08/21/17 07:30 08/21/17 07:30 Lab Results 08/21/17 16:35: POC Glucose (mg/dL) 167 H 08/21/17 11:01: POC Glucose (mg/dL) 264 H 08/21/17 07:30: Sodium 141, Potassium 4.3, Chloride 102, Carbon Dioxide 26, Anion Gap 16, BUN 10, Creatinine 0.7, Est GFR ( Amer) > 60, Est GFR (Non- Af Amer) > 60, Random Glucose 215 H, Calcium 9.7, Total Bilirubin 0.4, AST 31, ALT 45, Alkaline Phosphatase 118, Total Protein 7.1, Albumin 4.0, Globulin 3.2, Albumin/Globulin Ratio 1.3 08/21/17 07:30: WBC 9.9, RBC 4.81, Hgb 14.3, Hct 41.8, MCV 86.9, MCH 29.7, MCHC 34.2, RDW 12.9, Plt Count 347, MPV 9.1 08/21/17 07:15: POC Glucose (mg/dL) 161 H 08/20/17 21:14: POC Glucose (mg/dL) 198 H 08/20/17 17:12: POC Glucose (mg/dL) 125 H 08/20/17 11:14: POC Glucose (mg/dL) 236 H 08/20/17 07:20: RPR Nonreactive 08/20/17 07:20: TSH 3rd Generation 1.28 08/20/17 07:20: Fasting Glucose 158 H, Triglycerides 129, Cholesterol 209 H, LDL Cholesterol Direct 152 H, HDL Cholesterol 43 08/19/17 15:25: Urine Color Yellow, Urine Appearance Turbid, Urine pH 6.0, Ur Specific [place] >= 1.030, Urine Protein 30 H, Urine Glucose (UA) Negative, Urine Ketones Trace H, Urine Blood Negative, Urine Nitrate Negative, Urine Bilirubin Negative, Urine Urobilinogen 0.2, Ur Leukocyte Esterase Negative, Urine RBC Negative, Urine WBC 1 - 3, Ur Epithelial Cells Many, Urine Bacteria Many, Urine HCG, Qual Negative 08/19/17 15:25: Urine Opiates Screen Negative, Urine Methadone Screen Negative, Ur Barbiturates Screen Negative, Ur Phencyclidine Scrn Negative, Ur Amphetamines Screen Negative, U Benzodiazepines Scrn Positive, U Oth Cocaine Metabols Negative, U Cannabinoids Screen Positive H 08/19/17 14:15: Alcohol, Quantitative < 10 08/19/17 14:15: Salicylates < 1 L, Acetaminophen < 10.0 L 08/19/17 14:15: Sodium 141, Potassium 3.8, Chloride 103, Carbon Dioxide 25, Anion Gap 16, BUN 8, Creatinine 0.7, Est GFR ( Amer) > 60, Est GFR (Non- Af Amer) > 60, Random Glucose 139 H, Calcium 10.2, Total Bilirubin 0.5, AST 34, ALT 37, Alkaline Phosphatase 148 H, Total Protein 7.9, Albumin 4.5, Globulin 3.4 , Albumin/Globulin Ratio 1.3 08/19/17 14:15: WBC 11.8 H, RBC 5.03, Hgb 15.2, Hct 42.7, MCV 84.9, MCH 30.2, MCHC 35.6, RDW 13.0, Plt Count 421, MPV 9.1, Gran % 59.3, Lymph % (Auto) 32.7, [place] % (Auto) 5.8, Eos % (Auto) 1.9, Baso % (Auto) 0.3, Gran # 6.99 H, Lymph # ( Auto) 3.9 H, [place] # (Auto) 0.7 H, Eos # (Auto) 0.2, Baso # (Auto) 0.04 Vital Signs Temp Pulse Resp BP Pulse Ox 08/21/17 16:00 88 139/95 H 08/21/17 06:44 98.2 F 75 20 137/85 08/20/17 15:44 80 127/64 08/20/17 07:13 98.1 F 75 113/70 08/19/17 21:00 98.4 F 70 20 133/84 08/19/17 20:45 89 18 131/85 100 02/20/18 18:21 82 18 137/86 98 08/19/17 16:21 74 18 129/84 98 08/19/17 14:08 98.2 F 100 H 19 135/89 98 Temp Pulse Resp BP Pulse Ox 97.8 F 81 20 115/82 100 08/25/17 07:23 08/25/17 07:23 08/25/17 07:23 08/25/17 07:23 08/19/17 20:45 DSM 5 Symptoms Update: Shortly pt is 52yo single, female, long h/o alcohol addiction, cocaine and cannabis abuse, one self reported psychiatric admission, currently under the service of private psychiatrist , self reported h/o 4x suicidal attempts, 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 patient was seen at the treatment team meeting room, pt reported that she feels better, pt appeared to be less anxious, but pt is disorganized, pt rescinded 48hr notice, wants to complete the treatment. pt denied v/a/t hallucinations, does not appear to be paranoid. as per report pt's daughter called to the unit, said that pt is addicted to the pain meds and asked do not prescribe pain meds, off tramadol med teaching provided. patient tolerated medications well, no side effects observed or reported, aims 0 , EPS None DSM 5 Diagnosis: r/o bipolar II depressed with psychosis r/o substance induced psychosis (withdrawals) r/o delirium, pt has UTI polysubstance abuse most likely it is all the above, combined Medication Change: Yes (seroquel incrased, klonopin decreased) Medical Record Reviewed: Yes Consults ordered or reviewed: medical consult appreciated Mental Status Examination - Cognitive Function Orientation: Person, Place, Situation, Time Memory: Intact Attention: Poor Concentration: Poor Association: WNL Fund of Knowledge: Poor - Mood Mood: Depressed ("I am losing my mind"), Anxious - Affect Affect: Flat (and tearful) - Formal Thought Process Formal Thought Process: Hallucinations (pt had visual hallucinations) - Suicidal Ideation Suicidal Ideation: No - Homicidal Ideation Homicidal Ideation: No Goal/Treatment Plan - Goal/Treatment Plan Need for Continued Stay: Remain at risks for inpatient hospitalization, Severe depression anxiety, Discharge may exacerbated symptoms, Severe functional impairment Progress Toward Problem(s) and Goals/Treatment Plan: milieu/structure/supportive therapy Disulfiram 500 mg PO DAILYpt might consider that, but refused for now pt was educated about naltrexone ALPRAZolam d/c d/c tramadol Motrin for pain klonopin 1mg po tid scheduled Lamotrigine 100mg po bid for mood stabilization as per pt's request prozac started 20mg po daily for depression and anxiety ambien 5mg po hs for insomnia seroquel 200mg po bid for mood stabilization and psychosis will call medical consult SW evaluation Family involvement Follow up on labs Will monitor closely Pt was educated about risk/benefits and alternatives of medications, coping strategies (safety plan, suicide prevention), relapse prevention, importance of follow up with psychiatrist and therapist, stay away from drugs/alcohol/smoking Estimated Date of D/C: 08/29/17
--- NOTE | 2017-08-27 15:06 | PN ---
DATE: 08/27/2017 PULMONARY PROGRESS NOTE REFERRING PHYSICIAN: Patsy Sexton MD. SUBJECTIVE: The patient is sitting in the dining room with the rest of the patients. Night was unremarkable. Feels better. Cough is better. Shortness of breath is better. Has some muscular-type back pain. No nausea. No vomiting, diarrhea, leg pain or leg swelling. OBJECTIVE: GENERAL: In no acute distress. VITAL SIGNS: Temp is 98, heart rate is 78, respiratory rate is 20, blood pressure 134/90. HEENT: Moist mucous membrane. Crowded airway. NECK: Supple. No JVD. LUNGS: Have a fair airflow with rhonchi. HEART: S1 and S2. ABDOMEN: Soft, nontender. No organomegaly. EXTREMITIES: There is no edema. NEUROLOGICAL: Awake and alert. Follows simple command. LABORATORY DATA: Reviewed. Blood sugar this morning is 121. MEDICATIONS: She is on Advair 500/50 one puff twice a day, Ambien 5 mg at bedtime p.r.n., Cepacol lozenges q. 2 hours p.r.n., Colace 100 mg twice a day, Geodon 20 mg q. 8 hours p.r.n., also Geodon 20 mg IM q. 8 hours p.r.n., insulin coverage, Januvia 50 mg daily, clonazepam 1 mg three times a day, Lamictal is at 100 mg twice a day, Maalox 30 mL daily p.r.n., Motrin 800 mg three times a day, Nicoderm patch daily, Pepcid 40 mg daily, Phenergan DM 5 mL q. 6 hours p.r.n., Prozac 20 mg daily, Seroquel 300 mg at bedtime, also Seroquel 200 mg daily, Tylenol p.r.n. basis, Ventolin HFA two puffs q. 4 hours p.r.n. and also given Xopenex inhaled q. 6 hours p.r.n. IMPRESSION AND PLAN: Chronic obstructive lung disease, bipolar disorder, depression, suicidal ideation, musculoskeletal-type back pain. Pulmonary point of view, she is doing well. Continue p.o. and inhaled bronchodilator. Gastric prophylaxis. Continue therapy. Sleep apnea precaution. Thank you and we will follow with you. Jennifer Powers MD [facility] # [id number]
[2017-08-27] MEDS: Magnesium Hydroxide Susp 30 ml UD PO PRN (21:05)
[2017-08-27] MEDS: Promethazine DM 6.25 mg-15 mg/5 ml Syrup PO PRN (21:07)
[2017-08-28] MEDS: Fluticasone-Salmeterol 500-50mcg Diskus INH SCH ×2 (07:18→18:20)
[2017-08-28] MEDS: Levalbuterol 0.63 MG/3 ML Inhal Soln UD IH PRN ×2 (08:02→19:31)
[2017-08-28] MEDS: Insulin Reg-MEDIUM-Coverage SC SCH ×4 (08:57→21:50)
[2017-08-28] MEDS ORDERED: Bisacodyl 5mg EC Tab PO ONE (10:54)
--- NOTE | 2017-08-28 15:04 | PCM.PYCHPN ---
Psychiatric Progress Note - Psychiatric Progress Note Patient seen today, length of contact: 30min Patient Chief Complaint: 'I feel like my boss is looking at me with evil eyes, at the nighttime I saw bugs, I hit them, but nothing was there" Problems Identified/Issues Discussed: Suicide/ homicide prevention, past psychiatric h/o, current psychiatric symptoms , medical problems, risk/benefits and alternatives of medications, medications compliance, coping strategies, substance abuse h/o, relapse prevention, importance of follow up with psychiatrist and therapist, discharge plan. Medical Problems: UTI, constipation Diagnostic Results: 08/21/17 07:30 08/21/17 07:30 Lab Results 08/21/17 16:35: POC Glucose (mg/dL) 167 H 08/21/17 11:01: POC Glucose (mg/dL) 264 H 08/21/17 07:30: Sodium 141, Potassium 4.3, Chloride 102, Carbon Dioxide 26, Anion Gap 16, BUN 10, Creatinine 0.7, Est GFR ( Amer) > 60, Est GFR (Non- Af Amer) > 60, Random Glucose 215 H, Calcium 9.7, Total Bilirubin 0.4, AST 31, ALT 45, Alkaline Phosphatase 118, Total Protein 7.1, Albumin 4.0, Globulin 3.2, Albumin/Globulin Ratio 1.3 08/21/17 07:30: WBC 9.9, RBC 4.81, Hgb 14.3, Hct 41.8, MCV 86.9, MCH 29.7, MCHC 34.2, RDW 12.9, Plt Count 347, MPV 9.1 08/21/17 07:15: POC Glucose (mg/dL) 161 H 08/20/17 21:14: POC Glucose (mg/dL) 198 H 08/20/17 17:12: POC Glucose (mg/dL) 125 H 08/20/17 11:14: POC Glucose (mg/dL) 236 H 08/20/17 07:20: RPR Nonreactive 08/20/17 07:20: TSH 3rd Generation 1.28 08/20/17 07:20: Fasting Glucose 158 H, Triglycerides 129, Cholesterol 209 H, LDL Cholesterol Direct 152 H, HDL Cholesterol 43 08/19/17 15:25: Urine Color Yellow, Urine Appearance Turbid, Urine pH 6.0, Ur Specific [place] >= 1.030, Urine Protein 30 H, Urine Glucose (UA) Negative, Urine Ketones Trace H, Urine Blood Negative, Urine Nitrate Negative, Urine Bilirubin Negative, Urine Urobilinogen 0.2, Ur Leukocyte Esterase Negative, Urine RBC Negative, Urine WBC 1 - 3, Ur Epithelial Cells Many, Urine Bacteria Many, Urine HCG, Qual Negative 08/19/17 15:25: Urine Opiates Screen Negative, Urine Methadone Screen Negative, Ur Barbiturates Screen Negative, Ur Phencyclidine Scrn Negative, Ur Amphetamines Screen Negative, U Benzodiazepines Scrn Positive, U Oth Cocaine Metabols Negative, U Cannabinoids Screen Positive H 08/19/17 14:15: Alcohol, Quantitative < 10 08/19/17 14:15: Salicylates < 1 L, Acetaminophen < 10.0 L 08/19/17 14:15: Sodium 141, Potassium 3.8, Chloride 103, Carbon Dioxide 25, Anion Gap 16, BUN 8, Creatinine 0.7, Est GFR ( Amer) > 60, Est GFR (Non- Af Amer) > 60, Random Glucose 139 H, Calcium 10.2, Total Bilirubin 0.5, AST 34, ALT 37, Alkaline Phosphatase 148 H, Total Protein 7.9, Albumin 4.5, Globulin 3.4 , Albumin/Globulin Ratio 1.3 08/19/17 14:15: WBC 11.8 H, RBC 5.03, Hgb 15.2, Hct 42.7, MCV 84.9, MCH 30.2, MCHC 35.6, RDW 13.0, Plt Count 421, MPV 9.1, Gran % 59.3, Lymph % (Auto) 32.7, [place] % (Auto) 5.8, Eos % (Auto) 1.9, Baso % (Auto) 0.3, Gran # 6.99 H, Lymph # ( Auto) 3.9 H, [place] # (Auto) 0.7 H, Eos # (Auto) 0.2, Baso # (Auto) 0.04 Vital Signs Temp Pulse Resp BP Pulse Ox 08/21/17 16:00 88 139/95 H 08/21/17 06:44 98.2 F 75 20 137/85 08/20/17 15:44 80 127/64 08/20/17 07:13 98.1 F 75 113/70 08/19/17 21:00 98.4 F 70 20 133/84 08/19/17 20:45 89 18 131/85 100 08/19/17 18:21 82 18 137/86 98 08/19/17 16:21 74 18 129/84 98 08/19/17 14:08 98.2 F 100 H 19 135/89 98 Temp Pulse Resp BP Pulse Ox 97.8 F 81 20 115/82 100 08/25/17 07:23 08/25/17 07:23 08/25/17 07:23 08/25/17 07:23 08/19/17 20:45 DSM 5 Symptoms Update: Shortly pt is 52yo single, female, long h/o alcohol addiction, cocaine and cannabis abuse, one self reported psychiatric admission, currently under the service of private psychiatrist , self reported h/o 4x suicidal attempts, 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 patient was seen at the treatment team meeting room, pt was paranoid, was feeling that her boss looking at her "evil eyes", patient also reported that she saw bugs on the wall, tried to hit them, "but nothing was there". Patient presented to be labile, was crying, then smiling, patient was crying again. med teaching provided. patient tolerated medications well, no side effects observed or reported, aims 0 , EPS None DSM 5 Diagnosis: r/o bipolar II depressed with psychosis r/o substance induced psychosis (withdrawals) r/o delirium, pt has UTI polysubstance abuse most likely it is all the above, combined Medication Change: Yes (seroquel incrased, klonopin decreased) Medical Record Reviewed: Yes Mental Status Examination - Cognitive Function Orientation: Person, Place, Situation, Time Memory: Intact Attention: Poor Concentration: Poor Association: WNL Fund of Knowledge: Poor - Mood Mood: Depressed ("I am losing my mind"), Anxious - Affect Affect: Flat (and tearful) - Formal Thought Process Formal Thought Process: Hallucinations (pt had visual hallucinations) - Suicidal Ideation Suicidal Ideation: No - Homicidal Ideation Homicidal Ideation: No Goal/Treatment Plan - Goal/Treatment Plan Need for Continued Stay: Remain at risks for inpatient hospitalization, Severe depression anxiety, Discharge may exacerbated symptoms, Severe functional impairment Progress Toward Problem(s) and Goals/Treatment Plan: milieu/structure/supportive therapy Disulfiram 500 mg PO DAILYpt might consider that, but refused for now pt was educated about naltrexone ALPRAZolam d/c d/c tramadol Motrin for pain klonopin 1mg po tid scheduled Lamotrigine 100mg po bid for mood stabilization as per pt's request prozac 40mg po daily for depression and anxiety ambien 5mg po hs for insomnia seroquel 300mg po bid for mood stabilization and psychosis will call medical consult SW evaluation Family involvement Follow up on labs Will monitor closely Pt was educated about risk/benefits and alternatives of medications, coping strategies (safety plan, suicide prevention), relapse prevention, importance of follow up with psychiatrist and therapist, stay away from drugs/alcohol/smoking Estimated Date of D/C: 08/29/17
--- NOTE | 2017-08-28 20:16 | PN ---
DATE: PROGRESS NOTE SUBJECTIVE: She tells me this morning that she is breathing better, but she is constipated,needs to have something for constipation. I am going to put her on a Dulcolax suppository today. She is on Advair, Ambien, Cepacol, Colace, Geodon, insulin, Januvia, Klonopin, Lamictal, Maalox, milk of magnesia, Motrin, Nicoderm, Pepcid, Phenergan, Prozac, Seroquel, Tylenol, Ventolin, Xopenex. PHYSICAL EXAMINATION: GENERAL: She is breathing well. VITAL SIGNS: She has a 97.8 temp, 72 pulse, 132/79 blood pressure, 20 respiratory rate. HEENT: Head is atraumatic, normocephalic. HEART: Regular rate. LUNGS: Clear to auscultation. ABDOMEN: Soft. Positive bowel sounds. Nontender. She is a little bit full. EXTREMITIES: No edema. LABORATORY DATA: She has a 9.9 white count, that was on 08/21/2017. Last blood sugar was 103. ASSESSMENT: She had a few things going on today. She has constipation, asthma, diabetes, attention deficit hyperactivity disorder, urinary tract infection, upper respiratory infection, suicidal ideation, depression. PLAN: I am giving her Dulcolax suppository to help her along with her bowels. We will keep an eye on. Asked her to drink more water. Rebecca Rider DO
[2017-08-28] MEDS: Magnesium Hydroxide Susp 30 ml UD PO PRN (22:01)
--- NOTE | 2017-08-29 02:09 | PN ---
DATE: PULMONARY PROGRESS NOTE REFERRING PHYSICIAN: Patsy Sexton MD. SUBJECTIVE: Patient is walking in the hallway. Night was unremarkable. Slept well. Still gets short of breath occasionally. No cough. No nausea, no vomiting, no diarrhea. No leg pain or leg swelling. OBJECTIVE: GENERAL: In no acute distress. VITAL SIGNS: Temp is 98, heart rate is 101, respiratory rate is 20, blood pressure 118/56. HEENT: Moist mucous membrane. No ulcer or thrush noted. NECK: Supple. No JVD. LUNGS: Have fair airflow with rhonchi. HEART: S1 and S2. ABDOMEN: Soft, nontender. No organomegaly. EXTREMITIES: There is no edema. NEUROLOGICAL: Awake and alert. Follows simple command. MEDICATIONS: She is on Advair 500/50 one puff twice a day, Ambien 5 mg at bedtime p.r.n., Cepacol lozenges q.2 hours p.r.n., Colace 100 mg twice a day, Geodon 20 mg p.o. q.8 hours p.r.n., also Geodon 20 mg IM q.8 hours p.r.n., insulin coverage, Januvia 50 mg daily, Klonopin 1 mg three times a day, lamotrigine 100 mg twice a day, simethicone 30 mL daily p.r.n., milk of magnesia p.r.n, Motrin 800 mg three times a day, Nicoderm patch daily, Pepcid 40 mg daily, Phenergan DM 5 mL q.6 hours p.r.n., Prozac 40 mg daily, Seroquel 300 mg at bedtime and Seroquel 300 mg p.o. daily, Tylenol p.r.n. basis, Ventolin HFA two puffs q.4 hours p.r.n., Xopenex inhaled q.6 hours. LABORATORY DATA: Showed blood sugar of 102. IMPRESSION AND PLAN: Chronic obstructive lung disease, bipolar disorder, status post suicidal ideation. Pulmonary point of view, doing well. Continue p.o. and inhaled bronchodilator. Continue therapy measures p.r.n. Rescue inhaler. Upon discharge, does need pulmonary function test. Thank you and we will follow with you. Jennifer Powers MD
[2017-08-29] MEDS: Benzocaine/Menthol (Cepacol) Lozenge MT PRN ×2 (02:46→11:06)
[2017-08-29 07:15] VITALS: BP 110/70; PULSE 81; TEMP 97.8
[2017-08-29] MEDS ORDERED: POLYETHYLENE GLYCOL 3350 17 GM/Dose PACKET PO SCH (08:45)
[2017-08-29] MEDS: Fluticasone-Salmeterol 500-50mcg Diskus INH SCH (09:01)
[2017-08-29] MEDS: Promethazine DM 6.25 mg-15 mg/5 ml Syrup PO PRN (11:06)
[2017-08-29] MEDS: Insulin Reg-MEDIUM-Coverage SC SCH (11:16)
[2017-08-29] MEDS: Levalbuterol 0.63 MG/3 ML Inhal Soln UD IH PRN (12:11)
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
--- NOTE | 2017-08-30 12:13 | CP.PCM.PN ---
Subjective - Date & Time of Evaluation Date of Evaluation: 08/28/17 Time of Evaluation: 22:00 - Subjective Subjective: S: Nurse calls and tells that patient had an order to have Dulcolax suppository in the morning,patient refused to have it than , now requests to have one , but need a new order for that.. No other complaints. Pertinent medical record was reviewed. O:VSS. Not in acute distress. LUNGS:Normal breathing pattern. A:Constipation. P:Dulcolax suppository X 1. Objective - Vital Signs/Intake and Output Vital Signs (last 24 hours): Temp Pulse Resp BP Pulse Ox 97.8 F 81 20 110/70 100 08/29/17 07:14 08/29/17 07:14 08/29/17 07:14 08/29/17 07:14 08/19/17 20:45 - Labs Labs: 08/21/17 07:30 08/21/17 07:30
--- NOTE | 2017-09-01 09:06 | PN ---
DATE: 08/29/2017 SUBJECTIVE: I saw her this morning. She tells me that she can move her bowels only a little bit with Dulcolax suppository. I will put her on Miralax 17 g daily starting today. She also tells me that the urine was fine for a day or two, now the urine is having some discharge, so we are going to do urinalysis, culture and sensitivity, put her back on the Macrobid. We will check the labs and see how she is doing. She is feeling better otherwise. She is eating, participating and mentally I think has improved. PHYSICAL EXAMINATION: VITAL SIGNS: She has a 97.8 temp, 81 pulse, 110/70 blood pressure, 20 respiratory rate. HEENT: Head is atraumatic, normocephalic. HEART: Regular rate. LUNGS: Clear to auscultation. ABDOMEN: Soft, obese, nontender. Positive bowel sounds. EXTREMITIES: No edema. MEDICATIONS: She is on Advair, Ambien, Cepacol, Colace, Geodon, insulin, Januvia, Klonopin, Lamictal, Maalox, Macrobid, milk of magnesia, Miralax, Motrin, Nicoderm, Pepcid, Phenergan, Prozac, Seroquel, Tylenol, Ventolin and Xopenex. LABORATORY DATA: She had last blood test on the , her last blood sugar was 113. She had no issues. ASSESSMENT AND PLAN: Suicidal ideation, depression, upper respiratory infection, urinary tract infection, diabetes, constipation, asthma. We will put her back on antibiotics and medicines for the urine and medicines for the stool. Continue pulmonary treatment. Junior Rider DO
== END 2017-08-29 14:54 | disposition home or self-care (01) | DRG 885 ==
LOC: ED 14:05 → ERH 19:48 → PSYC 21:00
PROVIDERS: ADMIT Psychiatry & Neurology Psychiatry; ATTEND Psychiatry & Neurology Psychiatry
PROC: GZ3ZZZZ Medication Management (ICD-10-PCS; principal; 2017-08-20)
PROC: 3E0F7GC Introduction of Other Therapeutic Substance into Respiratory Tract, Via Natural or Artificial Opening (ICD-10-PCS; 2017-08-26)
DX: F31.81 Bipolar II disorder (principal); J44.0 Chronic obstructive pulmonary disease with (acute) lower respiratory infection; R45.851 Suicidal ideations; N39.0 Urinary tract infection, site not specified; J20.9 Acute bronchitis, unspecified; E78.00 Pure hypercholesterolemia, unspecified; F12.10 Cannabis abuse, uncomplicated; F14.10 Cocaine abuse, uncomplicated; F43.10 Post-traumatic stress disorder, unspecified; F90.9 Attention-deficit hyperactivity disorder, unspecified type; E11.9 Type 2 diabetes mellitus without complications; K59.00 Constipation, unspecified; M54.9 Dorsalgia, unspecified; G47.00 Insomnia, unspecified; J06.9 Acute upper respiratory infection, unspecified; F17.210 Nicotine dependence, cigarettes, uncomplicated; Z81.8 Family history of other mental and behavioral disorders

== ENCOUNTER 2018-07-20 12:12 | Outpatient (CLI) | payer BC | END 2018-07-20 12:13 | disposition home or self-care (01) | LOC: RAD 12:13 ==

== ENCOUNTER 2018-11-20 18:26 | Emergency (ER) | payer BC ==
[2018-11-20 18:36] VITALS: RESP 18; TEMP 98.2
--- NOTE | 2018-11-20 18:40 | ED PDOC ---
Arrival/HPI - General Chief Complaint: Alcohol Ingestion Time Seen by Provider: 11/20/18 18:27 Historian: Patient - History of Present Illness Narrative History of Present Illness (Text): 11/20/18 19:13 53 y/o female with PMH of bipolar disorder,depression, anxiety, presents to the ED by ambulance for evaluation of alcohol intoxication. She was found sleeping on the sidewalk. Admits to drinking beer and liquor today but unwilling to quantify. (+) ETOH on breath. Alert, oriented. Denies fall or trauma. Denies chest pain, SOB, fever, chills, palpitations, headache, vision changes, dizziness, neck pain, back pain, open wounds, numbness, weakness, paresthesias, seizures, hallucinations, drug use, HI, SI, or any other associated complaints. ROS and HPI limited secondary to alcohol intoxication. Past Medical History - Provider Review Nursing Documentation Reviewed: Yes - Past History Past History: No Previous - Infectious Disease Hx of Infectious Diseases: None - Cardiac Hx Cardiac Disorders: No Hx PA: No - Pulmonary Hx Respiratory Disorders: No Hx Tuberculosis: No (Patient denied) - Neurological Hx Neurological Disorder: No HX Cerebrovascular Accident: No Hx Transient Ischemic Attacks (TIA): No - HEENT Hx HEENT Disorder: No - Renal Hx Renal Disorder: No - Endocrine/Metabolic Hx Endocrine Disorders: No - Hematological/Oncological Hx Blood Disorders: No Hx Blood Transfusions: No Hx Blood Transfusion Reaction: No - Integumentary Hx Dermatological Disorder: No - Musculoskeletal/Rheumatological Hx Musculoskeletal Disorders: No Hx Back Pain: No Hx Falls: No Hx Fractures: No - Gastrointestinal Hx Gastrointestinal Disorders: No - Genitourinary/Gynecological Hx Genitourinary Disorders: No Hx Sexually Transmitted Diseases: No - Psychiatric Hx Psychophysiologic Disorder: Yes Hx Anxiety: Yes Hx Bipolar Disorder: Yes Hx Depression: Yes Hx Emotional Abuse: No Hx Physical Abuse: No Hx Substance Use: Yes (weed) - Surgical History Hx Section: Yes (X1) Other/Comment: "TUMMY TUCK" AND "BREAST LIFT" - Anesthesia Hx Anesthesia: Yes Hx Anesthesia Reactions: No Hx Malignant Hyperthermia: No - Suicidal Assessment Feels Threatened In Home Enviroment: No Family/Social History - Physician Review Nursing Documentation Reviewed: Yes Family/Social History: No Known Family HX Smoking Status: Heavy Smoker > 10 Cigarettes Daily Hx Alcohol Use: Yes Frequency of alcohol use: Daily Hx Substance Use: Yes (weed) Substance used: marijuanna and cocaine Hx Substance Use Treatment: No Allergies/Home Meds Allergies/Adverse Reactions: Allergies Penicillins Adverse Reaction (Verified 11/20/18 18:29) RASH Home Medications: Home Meds Medication Instructions Recorded Confirmed B-Complex with Vitamin C [Super B 1 tab PO DAILY 11/22/16 08/19/17 Complex-Vitamin C] Review of Systems - Review of Systems Constitutional: Normal. absent: Fevers Eyes: Normal. absent: Vision Changes ENT: Normal. absent: Sore Throat, Sinus Congestion Respiratory: Normal. absent: SOB, Cough Cardiovascular: Normal. absent: Chest Pain, Palpitations, Syncope Gastrointestinal: Normal. absent: Abdominal Pain, Nausea, Vomiting Genitourinary Female: Normal. absent: Dysuria, Frequency Musculoskeletal: Normal, Neck Pain. absent: Back Pain Skin: Normal. absent: Rash Neurological: Normal. absent: Headache, Dizziness, Focal Weakness, Seizure Psychiatric: Normal. absent: Suicidal Ideation Physical Exam - Physical Exam Physical Exam Limitations: Intoxication Vital Signs Reviewed: Yes Vital Signs Temp Pulse Resp BP Pulse Ox 11/20/18 18:27 98.2 F 72 18 118/74 98 Temperature: Afebrile Blood Pressure: Normal Pulse: Regular Respiratory Rate: Normal Appearance: Positive for: Non-Toxic, Comfortable, Unkept Pain Distress: None Mental Status: Positive for: Alert and Oriented X 3 - Systems Exam Head: Present: Atraumatic, Normocephalic Pupils: Present: PERRL Extroacular Muscles: Present: EOMI Conjunctiva: Present: Normal Mouth: Present: Moist Mucous Membranes Neck: Present: Normal Range of Motion. No: MIDLINE TENDERNESS, Paraspinal Tenderness Respiratory/Chest: Present: Clear to Auscultation, Good Air Exchange. No: Respiratory Distress, Accessory Muscle Use Cardiovascular: Present: Regular Rate and Rhythm, Normal S1, S2 Abdomen: Present: Other (soft). No: Tenderness Back: Present: Normal Inspection. No: Midline Tenderness, Paraspinal Tenderness Upper Extremity: Present: Normal Inspection, Normal ROM. No: Cyanosis, Edema, Tenderness, Swelling, Temperature Abnormalties, Deformity Lower Extremity: Present: Normal Inspection, NORMAL PULSES, Normal ROM. No: Edema, Tenderness, Swelling, Temperature Abnormalties Neurological: Present: GCS=15, Motor Func Grossly Intact Skin: Present: Warm, Dry, Normal Color. No: Rashes Psychiatric: Present: Alert, Oriented x 3, Intoxicated Medical Decision Making ED Course and Treatment: Initial Plan: * Fingerstick * Reassess and Disposition 18:30 Code Vaughan called. Patient placed in restraints to ensure patient and staff safety On initial exam, pt is A&Ox3, but intoxicated, (+) ETOH on breath. Admits to drinking alcohol, denies trauma/fall. No physical complaints, no signs of trauma. 18:56 Patient being aggressive, yelling at staff. Ativan 2mg IM ordered. 20:00 Patient continues to be awake, alert, oriented x3. Asking to be discharged home. Tolerated PO without difficulty. No vomiting. Continues to have no physical complaints. Denies SI/HI. 21:[address] Laney Rogel (sober, A&Ox3) here to transport patient home. Willing to accept care of patient. Patient to stay the night at friend's home and be cared for there. Ms. Rogel educated on the risks of alcohol intoxication and return precautions to include increased lethargy, intractable vomiting, chest pain, seizure, fall, or any other new/worsening symptoms. Patient is ambulating with steady gait, is A&Ox3, without tremor or other signs of alcohol withdrawal. Continues to deny SI/HI. Diagnostic testing results and plan of care discussed with patient. Strict instructions given regarding prescription use, importance of followup, and signs/symptoms to return to ER including seizure, fever, chest pain, SOB, or any other new/worsening symptoms. Pt verbalized understanding of discussion. Patient is A&Ox3, ambulating with steady gait, with vital signs stable for discharge. Disposition/Present on Arrival - Present on Arrival Any Indicators Present on Arrival: No History of DVT/PE: No History of Uncontrolled Diabetes: No Urinary Catheter: No History of Decub. Ulcer: No History Surgical Site Infection Following: None - Disposition Have Diagnosis and Disposition been Completed?: Yes Diagnosis: Alcohol intoxication Disposition: HOME/ ROUTINE Disposition Time: 21:15 Condition: STABLE Discharge Instructions (ExitCare): Alcohol Use - When Is Drinking a Problem?, Effects of Alcohol on Your Health Additional Instructions: Refrain from drug or alcohol use Increase fluids Rest Followup with primary doctor within 2 days Return to ER with any new/worsening symptoms Referrals: Alcoholics Anonymous [Outside] - Follow up with primary Forms: [employer] (Yoruba), WORK NOTE
[2018-11-20 22:12] VITALS: BP 120/65; PULSE 77; O2SAT 100
== END 2018-11-20 21:19 | disposition home or self-care (01) ==
LOC: ED 18:26
DX: F10.129 Alcohol abuse with intoxication, unspecified (principal)
CPT/HCPCS: 81025; 96372; 99283; J2060